=== PATIENT | female | born 1940 | race Caucasian/White ===

== ENCOUNTER 2021-03-09 09:51 | Outpatient (CLI) | payer MEDICARE, OTHER, SELFPAY ==
[2021-03-09 10:09] LABS: Basophils Percent Auto 0.7 % (0.2-1.2); Eosinophils Percent Auto 0.7 % (0-4.4); Hematocrit 34.8 % (37.0-47.0); Hemoglobin 11.5 g/dL (12.0-15.0); Immature Granulocyte Absolute 0.01 K/mm3 (0.00-0.031); Immature Granulocyte Percent A 0.2 % (0-0.5); Lymphocytes Absolute Auto 0.67 K/mm3 (0.9-3.2); Mean Corpuscular Hemoglobin 33.2 pg (26-34); Mean Corpuscular Volume 100.6 fl (80-100); Mean Platelet Volume 10.1 fl (7.4-10.4); Monocytes Absolute Auto 0.1 K/mm3 (0.1-0.6); Monocytes Percent Auto 2.7 % (2.6-8.5); Neutrophils Absolute Auto 3.6 K/mm3 (1.3-6.7); Neutrophils Percent Auto 80.7 % (45.5-73.1); Platelet Count Result 110 k/mm3 (150-375); Red Blood Count 3.46 M/mm3 (4.2-5.4); Red Cell Distribution Width 13.8 % (11.5-14.5); White Blood Count 4.5 K/mm3 (4.5-10.0)
== END 2021-03-09 09:52 | disposition home or self-care (01) ==
PROVIDERS: PCP Family Medicine; Visit Provider Family Medicine
DX: D69.6 Thrombocytopenia, unspecified (principal)
CPT/HCPCS: 36415; 85025

== ENCOUNTER 2022-03-24 14:46 | Outpatient (CLI) | payer MEDICARE, OTHER, SELFPAY ==
--- NOTE | ~2022-03-24 | CT_ITS ---
EXAMINATION: CT diagnostic chest wo con DATE: 03/24/2022 15:05 INDICATION: Pulmonary nodules TECHNIQUE: Computed tomography (CT) of the chest was performed without intravenous contrast. Automate d exposure control and iterative reconstruction technique were employed. Exam dose: 58.98 mGy-cm tot al exam DLP. COMPARISON: None FINDINGS: There is bilateral apical scarring. Approximately 5.3 x 10.6 x 10.2 mm irregular opacity is noted in the lateral aspect of the right uppe r lobe. PET/CT imaging is recommended for further evaluation, unless prior CT imaging dating back 2 or more y ears shows stability of this irregular opacity.. Mild emphysematous changes of the lungs. No pulmonary infiltrate or consolidation. Heart size is normal. Trace pericardial fluid. No hilar or mediastinal mass lesion or lymphadenopathy is evident. Mild thoracic aortic aneurysm given the descending thoracic aorta measuring up to 3.3 cm diameter.. Thoracic aortic and coronary artery calcifications. Probable small posterior right hepatic dome cyst.. 1.3 cm probable upper pole left renal cyst. Mild compression fracture deformity of T11 with depression of the superior vertebral endplate. IMPRESSION: 5.3 x 10.6 x 10.2 mm irregular right upper lobe opacity; PET/CT imaging is recommended u nless prior CT imaging dating back 2 or more years shows stability of this mass Mild emphysema Mild thoracic aortic aneurysm Probable hepatic dome cyst Probable upper pole left renal cyst Compression fracture deformity of T11 Reviewed, dictated and finalized at Location A. Reviewed, dictated and finalized at location A. IMPRESSION: 5.3 x 10.6 x 10.2 mm irregular right upper lobe opacity; PET/CT im aging is recommended unless prior CT imaging dating back 2 or more years shows stability of this mass Mild emphysema Mild thoracic aortic aneurysm Probable hepatic dome cyst Probable upper pole left renal cyst Compression fracture deformity of T11
== END 2022-03-24 14:47 | disposition home or self-care (01) ==
LOC: ANHIMG 14:48
PROVIDERS: PCP Family Medicine; Visit Provider Physician Assistant
DX: R91.8 Other nonspecific abnormal finding of lung field (principal); J43.9 Emphysema, unspecified; S22.080A Wedge compression fracture of T11-T12 vertebra, initial encounter for closed fracture; X58.XXXA Exposure to other specified factors, initial encounter
CPT/HCPCS: 71250

== ENCOUNTER 2022-04-01 11:43 | Outpatient (CLI) | payer MEDICARE, OTHER, SELFPAY ==
--- NOTE | ~2022-04-01 | PE_ITS ---
EXAMINATION: PET skull to mid thigh DATE: 04/01/2022 14:12 INDICATION: Pulmonary nodules TECHNIQUE: Blood glucose level was 93 mg/dl. 9.669 mCi of 18-fluorodeoxyglucose (18-FDG) was administ ered i.v. Low dose computed tomography (CT) images were acquired from the base of the brain to the pr oximal thighs for attenuation correction and anatomic localization. Positron emission tomography (PET ) images were acquired in the same distribution beginning 68 minutes after injection. The dose-length product (DLP) was chest CT, 03/24/2022 mGy-cm. COMPARISON: None FINDINGS: Head/neck: FDG uptake in the oral cavity and vocal cords without suspicious CT correlate is likely ph ysiologic. No abnormal FDG uptake is identified. Chest: There is a 1.1 x 0.8 cm nodule of the right upper lobe without associated FDG uptake. No abnor mal FDG uptake is identified. Mild emphysema is noted. The heart size is normal. There is calcified c oronary artery atherosclerosis. Scarring is noted in the lung apices. No pleural effusion or pneumoth orax. Abdomen/pelvis/proximal thighs: Physiologic FDG activity is present in the bowel and urinary tract. N o abnormal FDG uptake is identified. The liver, spleen, pancreas, gallbladder, and adrenal glands are normal. There is a 1.5 cm cyst of the left kidney. The right kidney is unremarkable. No pathological ly enlarged abdominal or pelvic lymph nodes are identified. There is no free intraperitoneal gas or e vidence of bowel obstruction. Musculoskeletal: No abnormal FDG uptake is identified. There is moderate cervical and mild lumbar spo ndylosis. IMPRESSION: 1. Right upper lobe nodule without associated FDG uptake, likely infectious or inflammatory. Follow-u p low-dose CT in three months is recommended. Reviewed, dictated and finalized at location F. IMPRESSION: 1. Right upper lobe nodule without associated FDG uptake, likely infectious or inflammatory. Follow-up low-dose CT in three months is recommended.
[2022-04-01 12:30] LABS: Glucose Point of Care 93 mg/dl (65-105)
== END 2022-04-01 11:44 | disposition home or self-care (01) ==
PROVIDERS: PCP Family Medicine; Visit Provider Physician Assistant
DX: R91.8 Other nonspecific abnormal finding of lung field (principal); D49.1 Neoplasm of unspecified behavior of respiratory system
CPT/HCPCS: 78815; A9552

== ENCOUNTER 2022-07-08 08:12 | Outpatient (CLI) | payer MEDICARE, OTHER, SELFPAY ==
--- NOTE | ~2022-07-08 | CT_ITS ---
EXAMINATION: CT diagnostic chest w con DATE: 07/08/2022 08:59 INDICATION: Follow-up right upper lobe nodule. TECHNIQUE: Computed tomography (CT) of the chest was performed with 75 cc Omnipaque 350 intravenous c ontrast. The dose-length product was 132.77 mGy-cm. Automated exposure control and iterative reconstr uction technique were employed. COMPARISON: CT dated 03/24/2022 FINDINGS: No significant pleural or pericardial effusion. There is atherosclerosis and ectasia of the thoracic aorta. Small hiatal hernia. There is cirrhosis of the liver. Small subcentimeter hypodensit y of the right hepatic lobe, most likely benign. Spleen appears enlarged, although incompletely visua lized. There are multiple collateral vessels in the upper abdomen. Small amount of ascites. Stable 1. 3 x 0.7 cm right upper lobe nodule dating back to 03/24/2022. No abnormal FDG uptake seen on prior pet s examination. There is apical pleural thickening/scarring. No pneumothorax. No pneumothorax. There i s a mild chronic compression deformity of the superior endplate at T11. No acute osseous abnormality. IMPRESSION: 1. Stable 1.3 x 0.7 cm right upper lobe nodule. Follow-up low dose CT chest in 6 months recommended. 2: Cirrhosis of the liver. Small amount of ascites. 3: Splenomegaly. Reviewed, dictated and finalized at location A.
[2022-07-08 08:49] LABS: Estimated Glomerular Filt Rate 53
== END 2022-07-08 08:13 | disposition home or self-care (01) ==
PROVIDERS: PCP Family Medicine; Visit Provider Physician Assistant
DX: R91.8 Other nonspecific abnormal finding of lung field (principal); K74.69 Other cirrhosis of liver; R16.1 Splenomegaly, not elsewhere classified
CPT/HCPCS: 71260; Q9967

== ENCOUNTER 2022-07-21 08:59 | Outpatient (CLI) | payer MEDICARE, OTHER, SELFPAY ==
--- NOTE | ~2022-07-21 | US_ITS ---
EXAMINATION: US abdomen complete DATE: 07/21/2022 09:55 INDICATION: Cirrhosis of the liver. TECHNIQUE: Multiple grayscale and Doppler ultrasound images of the abdomen were obtained. COMPARISON: Chest CT 07/08/2022 FINDINGS: The visualized portions of the head, body, and tail of the pancreas are normal. Abdominal a omari is normal in caliber. Inferior vena cava is normal. The liver demonstrates surface nodularity, c onsistent with cirrhosis. There is antegrade flow in main portal vein. There is nonocclusive thrombus in main portal vein. The gallbladder is normal in size. No gallstones or gallbladder wall thickening . There was no sonographic Mcarthur sign. The common duct is normal and measures 4 mm. The kidneys are normal in size. The spleen is normal in size. IMPRESSION: 1. Cirrhosis of the liver. 2. Nonocclusive thrombus in main portal vein. Reviewed, dictated and finalized at location B.
== END 2022-07-21 09:00 | disposition home or self-care (01) ==
PROVIDERS: PCP Family Medicine; Visit Provider Family Medicine
DX: K74.60 Unspecified cirrhosis of liver (principal); I81 Portal vein thrombosis
CPT/HCPCS: 76700

== ENCOUNTER 2022-08-24 01:26 | Day surgery (SDC) | payer MEDICARE, OTHER, SELFPAY ==
[2022-08-12 08:37] VITALS: BMI 22.7
[2022-08-24 09:16] VITALS: BP 140/81; PULSE 72; RESP 20; TEMP 36.9; O2SAT 99
[2022-08-24] MEDS: LACTATED RINGERS 1,000 ML 150 ML IV CONT (09:48)
--- NOTE | 2022-08-24 09:57 | WPDHPUPDATE1 ---
History and Physical Update Update Date/Time: 08/24/22 09:57 History and Physical has been reviewed, including an updated exam of the patient. There are NO changes in the patient's condition. Risks, benefits, and alternatives have been discussed and questions answered. Patient agrees to proceed with procedure.
--- NOTE | 2022-08-24 09:58 | WPDANESEPPF ---
Anes - Initial Pre Proc Eval Procedure: Operation Date: 08/24/22 10:45 Proposed Procedures p Esophagogastroduodenoscopy EGD - Lazarus Harrison MD Date/Time: 08/24/22 09:58 Surgeon: Lazarus Harrison MD Pre Op Diagnosis: cirrhosis Patient Data Age: 81 Gender: F Height: 1.68 m Weight: 66.3 kg Last Vital Signs Temp 98.4 F 08/24/22 09:16 Pulse 72 08/24/22 09:16 Resp 20 08/24/22 09:16 BP 140/81 08/24/22 09:16 Pulse Ox 99 08/24/22 09:16 O2 Del Method Room Air 08/24/22 09:16 Allergies Allergy/AdvReac Type Severity Reaction Status Date / Time butorphanol [From Stadol] Allergy Unknown Unknown Verified 08/24/22 09:14 Penicillins Allergy Unknown Rash Verified 08/24/22 09:14 Home Medications Medication Instructions Recorded Confirmed Type acetaminophen 325 mg capsule 650 mg PO Q6H PRN Pain 01/12/21 08/12/22 History azelastine 137 mcg (0.1 %) nasal 137 mcg (0.137 mL) intranasal Q12H 01/12/21 08/12/22 Rx spray aerosol #30 mL mupirocin 2 % topical ointment 1 applic topical BID #15 grams 01/12/21 08/12/22 Rx nystatin 100,000 unit/gram topical 1 applic topical BID #60 grams 01/12/21 08/12/22 Rx cream folic acid 1 mg tablet 1 mg PO DAILY #90 tabs 07/10/21 08/12/22 Rx fluoxetine 20 mg capsule 20 mg PO DAILY #90 caps 01/07/22 08/12/22 Rx multivitamin 1 tablet PO DAILY 03/17/22 08/12/22 History ergocalciferol (vitamin D2) 1,250 1,250 mcg PO WEEKLY #14 caps 04/07/22 08/12/22 Rx mcg (50,000 unit) capsule levothyroxine 75 mcg tablet 75 mcg PO DAILY #90 tabs 07/06/22 08/12/22 Rx methotrexate sodium 2.5 mg tablet 15 mg PO WEEKLY 3 months #78 tabs 07/20/22 08/12/22 Rx pyridoxine (vitamin B6) 100 mg 100 mg PO DAILY 07/20/22 08/12/22 History tablet oxybutynin chloride 5 mg tablet 5 mg PO DAILY #90 tabs 08/05/22 08/12/22 Rx Patient hx anesthesia problems: none Family hx anesthesia problems: none Results Review: All pre-operative results and documents have been reviewed as part of the pre-operative evaluation. [facility] Past Medical History Medical History Anemia Chronic renal insufficiency, stage III (moderate) Encounter for immunization Fatigue Hypothyroidism Kidney function abnormal Methotrexate, predatory animal exterminator, current use Multiple nodules of lung Paresthesia of foot, bilateral Portal vein thrombosis Rheumatoid arthritis Vitamin D deficiency Family History Family History Father Heart disease Hypertension Alcohol abuse Mother Brain cancer Depression Sibling Alcohol abuse Lung cancer Social History Social History Smoking packs per day: 1 Smoking cigarettes per day: 20.0 Years smoked: 30 Smoking pack-years: 30.00 Smoking status: Former smoker Second hand tobacco smoke exposure: No Alcohol intake: never Substance use: never Substance use type: does not use Living arrangements: alone Gender identity (if verbalized by the patient): Female Spiritual care concerns: No Anes - Eval Final PreProcedure Day of Procedure 08/24/22 09:58 Patient weight: normal Heart: regular rate and rhythm Lungs: clear to auscultation Airway: Mallampati scale class II Neurological: alert and oriented Last oral intake: >/= 8 hours ASA classification: III Emergent: no Anesthetic plan: proceed Anesthesia type and monitoring: general GIVS and standard monitoring Results Review: All pre-operative results and documents have been reviewed as part of the pre-operative evaluation. Informed Consent: The patient's anesthetic plan and its attendant risks and benefits were discussed with the patient/family/POA. Questions were solicited and answers provided to the satisfaction of the patient/family/POA.
[2022-08-24 10:17] VITALS: BP 94/50; PULSE 66; RESP 23; O2SAT 100
[2022-08-24 10:27] VITALS: BP 94/56; PULSE 66; RESP 18; O2SAT 100
[2022-08-24 10:37] VITALS: BP 111/67; PULSE 65; RESP 17; O2SAT 100
== END 2022-08-24 11:00 | disposition home or self-care (01) ==
PROVIDERS: PCP Family Medicine; Visit Provider Internal Medicine Gastroenterology
PROC: 0DJ08ZZ Inspection of Upper Intestinal Tract, Via Natural or Artificial Opening Endoscopic (ICD-10-PCS; CPT 43235; principal; 2022-08-24 10:45)
DX: K74.60 Unspecified cirrhosis of liver (principal); I85.10 Secondary esophageal varices without bleeding; N18.30 Chronic kidney disease, stage 3 unspecified; E55.9 Vitamin D deficiency, unspecified; E03.9 Hypothyroidism, unspecified; D64.9 Anemia, unspecified; Z87.891 Personal history of nicotine dependence
CPT/HCPCS: 43235; J2704; J7120

== ENCOUNTER 2022-08-25 14:32 | Outpatient (CLI) | payer MEDICARE, OTHER, SELFPAY ==
--- NOTE | ~2022-08-25 | MR_ITS ---
EXAMINATION: MR abdomen wo/w con DATE: 08/25/2022 15:55 INDICATION: Cirrhosis of the liver. Elevated AFP. TECHNIQUE: Magnetic resonance imaging (MRI) of the abdomen was performed without and with 13 mL Multi Luis Miguel intravenous contrast. COMPARISON: Ultrasound 07/21/2022 FINDINGS: The liver demonstrates a nodular surface contour, consistent with cirrhosis. There are 2 cysts in the liver with the larger measuring 9 mm. There is nonocclusive thrombus in main portal vein. The spleen is normal in size. Pancreas divisum is noted. The gallbladder and adrenal glands are normal. There a re cysts in the kidneys measuring up to 1.9 cm on the left. There are no dilated loops of bowel. Ther e is a small volume of ascites. IMPRESSION: 1. Cirrhosis of the liver. 2. Nonocclusive thrombus in main portal vein again seen. 3. Small volume of ascites. Reviewed, dictated and finalized at location A. ING REPAIRER
== END 2022-08-25 14:33 | disposition home or self-care (01) ==
PROVIDERS: PCP Family Medicine; Visit Provider Nurse Practitioner Family
DX: K74.60 Unspecified cirrhosis of liver (principal); R77.2 Abnormality of alphafetoprotein; I81 Portal vein thrombosis; R18.8 Other ascites
CPT/HCPCS: 74183; A9577

== ENCOUNTER 2023-02-17 11:09 | Outpatient (CLI) | payer MEDICARE, OTHER, SELFPAY ==
--- NOTE | ~2023-02-17 | XR_ITS ---
Left foot Technique: AP and lateral standing views were obtained. Clinical History: Rheumatoid arthritis Findings: Generalized osteopenia is present. No acute fracture or dislocation is seen. Osseous alignm ent is anatomic. Joint spaces are preserved without erosive or degenerative change. Soft tissues are unremarkable. Impression: Generalized osteopenia. No erosive change evident. Reviewed, dictated and finalized at location . Impression: Generalized osteopenia. No erosive change evident.
--- NOTE | ~2023-02-17 | XR_ITS ---
Bilateral Hands Technique: Bilateral PA, oblique, and lateral views, and ball-catcher's view were obtained. Clinical History: Rheumatoid arthritis Findings: No acute fracture or dislocation is seen. There is joint space narrowing diffusely involvin g the right-sided metacarpophalangeal joints. Possible erosive changes at the right third metacarpal head in particular. Probable minimal joint space narrowing at the left second and third metacarpophal angeal joints. Diffuse generalized osteopenia is present. Soft tissues are unremarkable. Impression: Probable bilateral metacarpophalangeal joint space narrowing, right hand worse than left, as detailed above, which could reflect rheumatoid arthritis. Possible erosive changes at the right third metacar pal head. Diffuse generalized osteopenia. Reviewed, dictated and finalized at location . Impression: Probable bilateral metacarpophalangeal joint space narrowing, right hand worse than left, as detailed above, which could reflect rheumatoid arthritis. Possibl e erosive changes at the right third metacarpal head. Diffuse generalized osteopenia.
--- NOTE | ~2023-02-17 | XR_ITS ---
Right foot Technique: AP and lateral standing views were obtained. Clinical History: Rheumatoid arthritis Findings: No acute fracture or dislocation is seen. There is hallux valgus with mild osteoarthritic c hange at the first MTP joint region. Diffuse generalized osteopenia present. Joint spaces are preserv ed without erosive or degenerative change. Soft tissues are unremarkable. Impression: Diffuse generalized osteopenia. Hallux valgus with mild osteoarthritic change at the first MTP joint region. Reviewed, dictated and finalized at location M. Impression: Diffuse generalized osteopenia. Hallux valgus with mild osteoarthritic change at the first MTP joint region.
== END 2023-02-17 11:10 | disposition home or self-care (01) ==
LOC: ANHIMG 11:12
PROVIDERS: PCP Family Medicine; Visit Provider Internal Medicine
DX: M06.9 Rheumatoid arthritis, unspecified (principal); M20.11 Hallux valgus (acquired), right foot; M85.871 Other specified disorders of bone density and structure, right ankle and foot; M85.872 Other specified disorders of bone density and structure, left ankle and foot; M85.841 Other specified disorders of bone density and structure, right hand; M85.842 Other specified disorders of bone density and structure, left hand
CPT/HCPCS: 73130; 73620

== ENCOUNTER 2023-08-08 08:31 | Outpatient (CLI) | payer MEDICARE, OTHER, SELFPAY ==
--- NOTE | ~2023-08-08 | MR_ITS ---
EXAMINATION: MR abdomen wo/w con INDICATION: Cirrhosis and portal vein thrombosis TECHNIQUE: Coronal SSFSE ARC, WATER:coronal LAVA-FLEX, Coronal 2D FIESTA FatSat, Axial SSFSE BH ARC, Axial 3D DualEcho BH, Axial SSFSE-IR, Axial DWI b=500, Axial 2D FIESTA FatSat, pre and dynamic postco ntrast Axial LAVA ARC, postcontrast Coronal In and Opposed phase LAVA FLEX COMPARISON: 08/25/2022 CONTRAST: Multihance, 11 cc FINDINGS: There is a moderate size right pleural effusion. A small left pleural effusion is noted. Cy sts of the liver measure 9 mm and 4 mm. The spleen, gallbladder, and adrenal glands are normal. Pancr eas divisum is noted. The liver surface is nodular. Respiratory motion artifact significantly limits postcontrast sequences. Previously described nonocclusive thrombus in the main portal vein is not thong ntified. There is a small volume of abdominal and pelvic ascites. No pathologically enlarged abdomina l lymph nodes are identified. There are no dilated loops of bowel. Cysts of the kidneys measure up to 2.1 cm on the left . IMPRESSION: 1. Cirrhosis. 2. No definite persistent portal venous thrombosis identified, sensitivity limited by respiratory mot ion. 3. Moderate size right pleural effusion. 4. Small volume of ascites. Reviewed, dictated and finalized at location B. P CAPTAIN IMPRESSION: 1. Cirrhosis. 2. No definite persistent portal venous thrombosis identified, sensitivity limi nash by respiratory motion. 3. Moderate size right pleural effusion. 4. Small volume of ascites.
== END 2023-08-08 08:32 | disposition home or self-care (01) ==
PROVIDERS: PCP Family Medicine; Visit Provider Nurse Practitioner Family
DX: I81 Portal vein thrombosis (principal); K74.60 Unspecified cirrhosis of liver; R18.8 Other ascites; J90 Pleural effusion, not elsewhere classified
CPT/HCPCS: 74183; A9577

== ENCOUNTER 2023-08-08 10:09 | Emergency (ER) | payer MEDICARE, OTHER, SELFPAY ==
[2023-08-08] VITALS (7 sets, daily range): BP systolic 146–155; BP diastolic 82–93; PULSE 60–62; RESP 16–18; TEMP 36.4; O2SAT 93–100
--- NOTE | 2023-08-08 12:26 | ED.GENADULT ---
HPI - General Adult General Chief complaint: Unspecified Stated complaint: mri saw something on pts lungs Time Seen by Provider: 08/08/23 12:00 Source: patient, family and other (notified by radiologist prior to patient's arrival ) Limitations: no limitations History of Present Illness HPI narrative: Patient is an 82 yo with Hx of COPD and cirrhosis as well as rheumatoid arthritis. Patient underwent abdominal MRI this morning to evaluate her liver. She was sent to the ED for concerning lung findings seen on images. She does have shortness of breath, often exacerbated by abdominal swelling. Not on inhaler or nebulizer or steroids for COPD. She does state that a spot had been previously seen on her lung that they were monitoring and she does not know if this is related. SHe has had a cough productive of scant phelgm. No fevers. 10 lb weight loss over 2 months by report. No prior paracentesis. She denies any pain. Denies night sweats. Medication list: acetaminophen, Vit D2, fluoxetine, folic acid, hydrocortisone 2.5, levothyroxine, multivitamin, muprirocin, oxybutynin, propranolol, Vit B6 Related Data Home Medications Medication Instructions Recorded Confirmed acetaminophen 325 mg capsule 650 mg PO Q6H PRN Pain 01/12/21 07/19/23 multivitamin 1 tablet PO DAILY 03/17/22 07/19/23 pyridoxine (vitamin B6) 100 mg 100 mg PO DAILY 07/20/22 07/19/23 tablet Allergies Allergy/AdvReac Type Severity Reaction Status Date / Time butorphanol [From Stadol] Allergy Unknown Unknown Verified 07/19/23 10:16 Penicillins Allergy Unknown Rash Verified 07/19/23 10:16 [facility] Past Medical History Medical History (Updated 08/10/23 @ 01:34 by Ronna Dowell MD) Anemia Back pain Chronic renal insufficiency, stage III (moderate) Cirrhosis COPD (chronic obstructive pulmonary disease) Encounter for immunization Esophageal varices determined by endoscopy Fatigue Hypothyroidism Kidney function abnormal Liver cyst Loose stools Methotrexate, long term acute care registered nurse, current use Multiple nodules of lung Paresthesia of foot, bilateral Portal vein thrombosis Rheumatoid arthritis Vitamin D deficiency Family History Family History Father Heart disease Hypertension Alcohol abuse Mother Brain cancer Depression Sibling Alcohol abuse Lung cancer Social History Social History (Updated 08/10/23 @ 01:31 by Ronna Dowell MD) Smoking packs per day: 1 Smoking cigarettes per day: 20.0 Years smoked: 30 Smoking pack-years: 30.00 Smoking status: Former smoker Second hand tobacco smoke exposure: No Alcohol intake: never Substance use: never Substance use type: does not use Lack of Transportation: No Lack of Food: Never True Current Housing: I Have Housing Concerned About Future Housing: No Difficulty Paying Gas/Electric Bills: No Difficulty Paying for Meds: No Currently Unemployed: No Education: Decline to Answer Difficulty w/ Childcare or Family Care: Decline to Answer Living arrangements: alone Additional living arrangements comments: Moved from [facility] in 2019 Gender identity (if verbalized by the patient): Female Spiritual care concerns: No Agree to blood products: Yes Exam Const: General: cooperative, comfortable, no acute distress, alert and awake; No healthy appearing, acute distress, anxious, combative or diaphoretic Orientation/consciousness: oriented to person, oriented to place and oriented to time HENMT: Head: normocephalic and atraumatic Ears: hearing grossly normal bilaterally Resp: Effort & Inspection: normal respiratory effort, able to speak in complete sentences, normal respiratory pattern, no audible wheezes, not labored, no nasal flaring, no paradoxical thoraco-abdom movements, pursed lip breathing, no respiratory distress, no retractions, no segmental paradox chest wall movement, no stridor, tachypneic, no tripod posit
== END 2023-08-08 14:42 | disposition home or self-care (01) ==
PROVIDERS: Emergency Provider Student in an Organized Health Care Education/Training Program; PCP Family Medicine
DX: J90 Pleural effusion, not elsewhere classified (principal); J44.9 Chronic obstructive pulmonary disease, unspecified; K74.60 Unspecified cirrhosis of liver; K76.6 Portal hypertension; N18.30 Chronic kidney disease, stage 3 unspecified; M06.9 Rheumatoid arthritis, unspecified; E03.9 Hypothyroidism, unspecified; E55.9 Vitamin D deficiency, unspecified; Z86.2 Personal history of diseases of the blood and blood-forming organs and certain disorders involving the immune mechanism; Z87.891 Personal history of nicotine dependence; R18.8 Other ascites
CPT/HCPCS: 74183; 99281; A9577

== ENCOUNTER 2023-08-16 08:26 | Outpatient (CLI) | payer MEDICARE, OTHER, SELFPAY ==
--- NOTE | ~2023-08-16 | CT_ITS ---
Clinical Indication: Pulmonary nodule CT Scan of the Chest with Contrast: Technique: Contiguous sections were acquired throughout the chest after intravenous administration of 75 cc of Omnipaque 350. Dose reduction technique was used on this scan by utilizing automated exposu re control and iterative reconstruction technique. The dose-length product (DLP) was 132.86 mGy-cm. COMPARISON: 07/08/2022 Findings: There is no evidence of any significant mediastinal, hilar or axillary lymphadenopathy. There is no f illing defect in the pulmonary arterial tree to suggest pulmonary embolus. There is no evidence of ao rtic dissection or aneurysm. No pericardial effusion. Moderate right pleural effusion is present. No left pleural effusion. Stable 1.2 cm spiculated nodule in the right upper lobe (axial image 53). Mild biapical scarring pres ent. Images through the upper abdomen reveal no abnormalities. Impression: Stable 1.2 cm spiculated right upper lobe pulmonary nodule. Continued follow-up to document 2 years s tability advised. Moderate right pleural effusion. Reviewed, dictated and finalized at location . FACER Impression: Stable 1.2 cm spiculated right upper lobe pulmonary nodule. Continued follow-up to document 2 years stability advised. Moderate right pleural effusion.
[2023-08-16 08:50] LABS: Estimated Glomerular Filt Rate 53
== END 2023-08-16 08:27 | disposition home or self-care (01) ==
LOC: ANHIMG 08:30
PROVIDERS: PCP Family Medicine; Visit Provider Physician Assistant
DX: R91.1 Solitary pulmonary nodule (principal); J90 Pleural effusion, not elsewhere classified
CPT/HCPCS: 71260; Q9967

== ENCOUNTER 2023-09-13 14:24 | Outpatient (CLI) | payer MEDICARE, OTHER, SELFPAY ==
--- NOTE | ~2023-09-13 | XR_ITS ---
EXAMINATION: XR chest 2V Exam Date/Time: 09/13/2023 14:50 [employer]OURCES DISTRICT MANAGER HISTORY: J90 - Pleural effusion, not elsewhere classified Comparison: CT chest 08/16/2023. RESULT: Lines, tubes, and devices: None. Lungs and pleura: Enlarging 1.5 cm right apical pleural-based opacity. Stable peripheral right middl e lobe nodule. Moderate right costophrenic angle blunting, slightly increased Cardiomediastinal silhouette: Stable. Other: No acute osseous or upper abdominal finding. IMPRESSION: Enlarging 1.5 cm pleural-based right apical nodule. Stable peripheral right upper lobe nodule. Worsen ing right pleural effusion. Recommend CT of the chest with contrast for further evaluation. Reviewed, dictated and finalized at location K. N RESOURCES DISTRICT MANAGER IMPRESSION: Enlarging 1.5 cm pleural-based right apical nodule. Stable peripheral right upp er lobe nodule. Worsening right pleural effusion. Recommend CT of the chest wit h contrast for further evaluation.
== END 2023-09-13 14:25 | disposition home or self-care (01) ==
LOC: ANHIMG 14:35
PROVIDERS: PCP Family Medicine; Visit Provider Internal Medicine Pulmonary Disease
DX: J90 Pleural effusion, not elsewhere classified (principal); R91.1 Solitary pulmonary nodule
CPT/HCPCS: 71046

== ENCOUNTER 2023-10-11 10:55 | Outpatient (CLI) | payer MEDICARE, OTHER, SELFPAY ==
--- NOTE | 2023-10-07 11:40 | PC.NURSE ---
Pre Radiology instructions Report to the outpatient [facility] on date 10/11/2023 at time _11am_ for procedure Time: __1pm__ YOU MAY BE MONITORED AT HOSPITAL FOR UP TO 4 HOURS AFTER YOUR PROCEDURE. A visitor will be allowed to accompany the patient into the hospital. You and your visitor will be asked to self-screen and do not enter if you have any COVID symptoms. A mask is OPTIONAL within the hospital. Patients are to have no food or drink 6 hours prior to procedure time stop 7am Driving will be restricted after the procedure, you must have a person to drive you home. Labs will be drawn in preop area and once reviewed, you will be taken to radiology area for procedure. When the procedure is completed, you will be taken to outpatient where you will be monitored for several hours. You may have one visitor in this area. Other than holding anti-coagulants, patient may take other medication(s) as scheduled. Prior to your appointment date patients are instructed to hold anti-coagulants after discussing with ordering provider to stop. If unable to discontinue anti-coagulants please notify radiologist. ? No aspirin or warfarin (Coumadin) for 7 days prior to the procedure. ? No clopidogrel (Plavix), ticagrelor (Brilinta), prasugrel (Effient) or dabigatran (Pradaxa) for 5 days prior to the procedure. ? No rivaroxaban (Xarelto), apixaban (Eliquis), dipyridamole (Aggrenox or Persantine) or cilostazol (Pletal) for 2 days prior to the procedure. Medications to discontinue per physician: NA___ Date to take last dose: Please leave all valuables, including medications, at home the day of procedure. The hospital will not accept responsibility for valuables. Wear comfortable, loose fitting clothing.? Follow any additional instructions given to you from ordering provider. Telephone instructions given to patient and asked if any additional questions and then verbalized understanding. Patient advised to call scheduling provider office or registration scheduling [phone] if any additional questions.
[2023-10-07 11:49] VITALS: BMI 20.9
[2023-10-11] VITALS (9 sets, daily range): BP systolic 119–144; BP diastolic 70–89; PULSE 64–67; RESP 16–18; TEMP 36.7; O2SAT 97–100
--- NOTE | ~2023-10-11 | XR_ITS ---
EXAMINATION: [id number] DATE: 10/11/2023 13:22 INDICATION: Right pleural effusion status post thoracentesis. TECHNIQUE: A single frontal view of the chest was obtained. COMPARISON: Chest 2 views 09/13/2023, chest CT 08/16/2023, 03/24/2022 FINDINGS: There is a moderate-sized right pleural effusion. There is mild scarring at the lung apices . There is a nodule in right lung upper lobe. No pneumothorax. The heart size is normal. IMPRESSION: 1. Moderate-sized right pleural effusion status post thoracentesis. 2. Stable right lung nodule, likely benign. Reviewed, dictated and finalized at location A. S [employer]
--- NOTE | ~2023-10-11 | US_ITS ---
EXAMINATION: US thoracentesis DATE: 10/11/2023 13:33 INDICATION: pleural effusion TECHNIQUE: The procedure and its risks, benefits, and alternatives were discussed with the patient. P otential risks discussed included bleeding, infection, and pneumothorax. The patient understood the r isks and agreed to proceed. The skin was prepped and draped in sterile fashion. 1% lidocaine was used for local anesthesia. Under ultrasound guidance, a 5 Fr catheter with trochar was advanced into the right pleural effusion. Fluid was aspirated. The catheter was removed, and a dressing was applied. Th ere were no immediate complications. FINDINGS: Ultrasound images demonstrate a right pleural effusion and the catheter within the fluid. IMPRESSION: 1. Successful ultrasound-guided thoracentesis yielding 1000 mL of cloudy yellow fluid. Reviewed, dictated and finalized at location A. BOAT OR BARGE MATE IMPRESSION: 1. Successful ultrasound-guided thoracentesis yielding 1000 mL of cloudy yello w fluid.
[2023-10-11 11:46] LABS: Immature Platelet Fraction Pct 3.8 % (0.9-11.2); Mean Platelet Volume 10.7 fl (7.4-10.4); Platelet Count Result 112 k/mm3 (150-375)
[2023-10-11 11:55] LABS: INR 1.2; Prothrombin Time 15.3 Seconds (11.1-14.7)
[2023-10-11 14:11] LABS: pH Pleural Fluid > 7.500 (7.210-7.500)
[2023-10-11 15:02] LABS: Appearance Pleural Fluid Clear (Clear); Pleural fluid source Pleural fluid
[2023-10-11 15:03] LABS: Color Pleural Fluid Yellow (Colorless); RBC Pleural Fluid < 2000 /uL (0-0)
[2023-10-11 15:06] LABS: Lymphocytes Pleural Fluid 88 %; Macrophages Pleural Fluid 5 %; Monocytes Pleural Fluid 5 %; Neutrophils Pleural Fluid 2 % (0-25); Nucleated Cell Pleural Fluid 437 /uL (0-1000)
[2023-10-14 07:50] LABS: Glucose Pleural Fluid 104 mg/dL; LDH Pleural Fluid 82 U/L; Total Protein Pleural Fluid <3.0 g/dL
[2023-10-14 19:31] LABS: Amylase, Pleural Fluid 30 U/L
== END 2023-10-11 15:34 | disposition home or self-care (01) ==
PROVIDERS: PCP Family Medicine; Referring Provider Internal Medicine Pulmonary Disease; Visit Provider Radiology Diagnostic Radiology
DX: J90 Pleural effusion, not elsewhere classified (principal)
CPT/HCPCS: 32555; 36415; 82150; 82945; 83615; 83986; 84157; 85049; 85055; 85610; 87015; 87070; 87075; 87116; 87205; 87206; 88108; 88305; 88342; 89051

== ENCOUNTER 2023-10-12 11:17 | Outpatient (CLI) | payer MEDICARE, OTHER, SELFPAY ==
[2023-10-12 11:56] LABS: Lactate Dehydrogenase 127 U/L (120-246)
== END 2023-10-12 11:18 | disposition home or self-care (01) ==
LOC: ANHLAB 11:19
PROVIDERS: PCP Family Medicine; Visit Provider Internal Medicine Pulmonary Disease
DX: J90 Pleural effusion, not elsewhere classified (principal)
CPT/HCPCS: 36415; 83615; 84155

== ENCOUNTER 2023-11-11 12:46 | Outpatient (CLI) | payer MEDICARE, OTHER, SELFPAY ==
--- NOTE | ~2023-11-11 | XR_ITS ---
Clinical Indication: Pleural effusion PA and lateral views of the chest: Comparison: 10/11/2023 Findings: Moderate right pleural effusion is increased from prior exam. Left lung remains clear. Ques tionable 9 mm right upper lobe pulmonary nodule. Cardiomediastinal silhouette is within normal limit s. Bones and soft tissues are unremarkable. Impression: Moderate right pleural effusion is increased from prior exam. Probable 9 mm right upper lobe pulmonary nodule. This presumably correlates with right upper lobe pul monary nodule seen on prior CT scan dated 08/16/2023. Reviewed, dictated and finalized at location M. REPAIRER Impression: Moderate right pleural effusion is increased from prior exam. Probable 9 mm right upper lobe pulmonary nodule. This presumably correlates wit h right upper lobe pulmonary nodule seen on prior CT scan dated 08/16/2023.
== END 2023-11-11 12:47 | disposition home or self-care (01) ==
LOC: ANHIMG 12:50
PROVIDERS: PCP Family Medicine; Visit Provider Internal Medicine Pulmonary Disease
DX: J90 Pleural effusion, not elsewhere classified (principal)
CPT/HCPCS: 71046

== ENCOUNTER 2023-12-07 11:17 | Outpatient (CLI) | payer MEDICARE, OTHER, SELFPAY ==
--- NOTE | ~2023-12-07 | XR_ITS ---
EXAMINATION: XR chest 2V DATE: 12/07/2023 11:38 INDICATION: Right pleural effusion and lung nodule TECHNIQUE: Frontal and lateral views of the chest are obtained COMPARISON: 11/11/2023 FINDINGS: There is a moderate size right pleural effusion without significant change since the compar jassi examination. There is a stable nodule of the right midlung zone. There are worsening airspace op acities of the right lung base. There is moderate thoracic spondylosis. IMPRESSION: 1. Moderate size right pleural effusion, stable. 2. Worsening airspace opacities of the right lung base, likely passive atelectasis. 3. Stable right lung nodule. Reviewed, dictated and finalized at location B. T OF WAY APPRAISER IMPRESSION: 1. Moderate size right pleural effusion, stable. 2. Worsening airspace opacities of the right lung base, likely passive atelecta sis. 3. Stable right lung nodule.
== END 2023-12-07 11:18 | disposition home or self-care (01) ==
PROVIDERS: PCP Family Medicine; Visit Provider Internal Medicine Pulmonary Disease
DX: R91.8 Other nonspecific abnormal finding of lung field (principal); R91.1 Solitary pulmonary nodule; J90 Pleural effusion, not elsewhere classified
CPT/HCPCS: 71046

== ENCOUNTER 2024-01-02 02:24 | Outpatient (CLI) | payer MEDICARE, OTHER, SELFPAY ==
[2023-12-22 15:22] VITALS: BMI 20.2
--- NOTE | 2023-12-22 15:22 | PC.NURSE ---
Pre Radiology instructions Report to the outpatient [facility] on date __01/02/24___ at time __1100____ for procedure Time: __1 PM__ YOU MAY BE MONITORED AT HOSPITAL FOR UP TO 4 HOURS AFTER YOUR PROCEDURE. A visitor will be allowed to accompany the patient into the hospital. You and your visitor will be asked to self-screen and do not enter if you have any COVID symptoms. A mask is OPTIONAL within the hospital. Patients are to have no food or drink 6 hours prior to procedure time Driving will be restricted after the procedure, you must have a person to drive you home. Labs will be drawn in preop area and once reviewed, you will be taken to radiology area for procedure. When the procedure is completed, you will be taken to outpatient where you will be monitored for several hours. You may have one visitor in this area. Other than holding anti-coagulants, patient may take other medication(s) as scheduled. Prior to your appointment date patients are instructed to hold anti-coagulants after discussing with ordering provider to stop. If unable to discontinue anti-coagulants please notify radiologist. ? No aspirin or warfarin (Coumadin) for 7 days prior to the procedure. ? No clopidogrel (Plavix), ticagrelor (Brilinta), prasugrel (Effient) or dabigatran (Pradaxa) for 5 days prior to the procedure. ? No rivaroxaban (Xarelto), apixaban (Eliquis), dipyridamole (Aggrenox or Persantine) or cilostazol (Pletal) for 2 days prior to the procedure. Medications to discontinue per physician: ___N/A Date to take last dose: Please leave all valuables, including medications, at home the day of procedure. The hospital will not accept responsibility for valuables. Wear comfortable, loose fitting clothing.? Follow any additional instructions given to you from ordering provider. Telephone instructions given to ___PT and asked if any additional questions and then verbalized understanding. Patient advised to call scheduling provider office or registration scheduling [phone] if any additional questions.
[2024-01-02] VITALS (8 sets, daily range): BP systolic 136–155; BP diastolic 88–96; PULSE 61–72; RESP 18; TEMP 36.3; O2SAT 93–100; BMI 20.6
--- NOTE | ~2024-01-02 | US_ITS ---
CORRECTED REPORT Images and report moved from [id number] to [id number] 01/09/24[facility] EXAMINATION: US thoracentesis DATE: 01/02/2024 15:10 INDICATION: pleural effusion TECHNIQUE: The procedure and its risks, benefits, and alternatives were discussed with the patient. Potential risks discussed included bleeding, infection, and pneumothorax. The patient understood the risks and agreed to proceed. The skin was prepped and draped in sterile fashion. 1% lidocaine was used for local anesthesia. Under ultrasound guidance, a 5 Fr catheter with trochar was advanced into the right pleural effusion. Fluid was aspirated. The catheter was removed, and a dressing was applied. There were no immediate complications. FINDINGS: Ultrasound images demonstrate a right pleural effusion and the catheter within the fluid. IMPRESSION: 1. Successful ultrasound-guided thoracentesis yielding 1000 mL of yellow fluid. Reviewed, dictated and finalized at location A. NIKA CONWAY
--- NOTE | ~2024-01-02 | XR_ITS ---
CORRECTED REPORT Images and Report moved from [id number] to [id number] EXAMINATION: [id number]_CR DATE: 01/02/2024 14:05 INDICATION: Right pleural effusion status post thoracentesis. TECHNIQUE: A single frontal view of the chest was obtained. COMPARISON: Chest 2 views 12/07/23 FINDINGS: There is a moderate-sized right pleural effusion. There are airspace opacities at right lung base. There is mild scarring at the lung apices. There is a chronic nodule in right lung upper lobe, likely benign. No pneumothorax. The heart size is normal. IMPRESSION: 1. Moderate-sized right pleural effusion. 2. Airspace opacities at right lung base, consistent with atelectasis versus pneumonia. Reviewed, dictated and finalized at location A. MAN
[2024-01-02 11:50] LABS: Mean Platelet Volume 9.9 fl (7.4-10.4); Platelet Count Result 79 k/mm3 (150-375)
[2024-01-02 12:00] LABS: INR 1.1; Prothrombin Time 14.8 Seconds (11.1-14.7)
[2024-01-02 14:53] LABS: pH Pleural Fluid > 7.500 (7.210-7.500)
[2024-01-02 16:46] LABS: Pleural fluid source Pleural fluid
[2024-01-02 16:47] LABS: Appearance Pleural Fluid Cloudy (Clear); Color Pleural Fluid Yellow (Colorless); Lymphocytes Pleural Fluid 77 %; Macrophages Pleural Fluid 4 %; Mesothelial Cells Pleural Flui 4 %; Neutrophils Pleural Fluid 15 % (0-25)
[2024-01-07 12:56] LABS: Glucose Pleural Fluid 101 mg/dL; LDH Pleural Fluid 37 U/L; Total Protein Pleural Fluid <3.0 g/dL
[2024-01-07 18:11] LABS: Amylase, Pleural Fluid 32 U/L
== END 2024-01-02 16:25 | disposition home or self-care (01) ==
PROVIDERS: PCP Family Medicine; Referring Provider Internal Medicine Pulmonary Disease; Visit Provider Radiology Diagnostic Radiology
DX: J90 Pleural effusion, not elsewhere classified (principal)
CPT/HCPCS: 32555; 36415; 82150; 82945; 83615; 83986; 84157; 85049; 85610; 87070; 87075; 87102; 87205; 87206; 88108; 88305; 89051

== ENCOUNTER → 2024-01-02 12:42 | Outpatient (REF) | payer MEDICARE, OTHER, SELFPAY | LOC: ANHLAB 12:42 | PROVIDERS: PCP Family Medicine; Visit Provider Internal Medicine Pulmonary Disease | DX: J90 Pleural effusion, not elsewhere classified (principal) | CPT/HCPCS: 88108; 88305 ==

== ENCOUNTER 2024-01-09 07:26 | Outpatient (CLI) | payer MEDICARE, OTHER, SELFPAY ==
--- NOTE | ~2024-01-09 | US_ITS ---
Limited Abdominal Sonogram: Real-time sonographic imaging of the right upper quadrant was performed. Clinical History: Cirrhosis Findings: The liver demonstrate nodular contour, with no evidence of mass lesion or bile duct dilata tion. Main portal vein demonstrates normal direction of flow. The gallbladder is minimally distended, but appears normal with no evidence of gallstone or wall thickening. The common bile duct measures 5 mm. The visualized pancreas, aorta, and IVC are unremarkable. Impression: Nodular hepatic contour is compatible with underlying cirrhosis. Reviewed, dictated and finalized at location M. Impression: Nodular hepatic contour is compatible with underlying cirrhosis.
== END 2024-01-09 07:27 | disposition home or self-care (01) ==
LOC: ANHIMG 07:30
PROVIDERS: PCP Family Medicine; Visit Provider Nurse Practitioner Family
DX: K74.60 Unspecified cirrhosis of liver (principal); J90 Pleural effusion, not elsewhere classified
CPT/HCPCS: 76705

== ENCOUNTER 2024-01-23 06:08 | Inpatient (IN) | payer MEDICARE, OTHER, SELFPAY ==
[2024-01-23] VITALS (41 sets, daily range): BP systolic 100–216; BP diastolic 60–136; PULSE 66–88; RESP 15–28; TEMP 36–36.7; O2SAT 78–100; BMI 24.5
--- NOTE | 2024-01-23 | ECHO_ITS ---
Patient Info Name: Piedad Quiñones Age: 83 years : 1940 Gender: Female Ht: 64 in Wt: 137 lbs BSA: 1.68 m2 HR: 72 bpm BP: 162 / 84 mmHg Heart Rhythm: Sinus Rhythm Technical Quality: Good Exam Date: 01/23/2024 4:02 PM Exam Location: Echo Lab Patient Status: Inpatient Admit Date: 01/23/2024 Staff Ordering Physician: Zahraa Short MD Bag Patcher: [place] Herrera RDCS Attending Provider: Shabbir Morales MD Exam Type: CA echo doppler color flow Study Info Indications - heart failure symptoms Complete two-dimensional, color flow and Doppler transthoracic echocardiogram is performed. Summary 1. Complete two-dimensional, color flow and Doppler transthoracic echocardiogram is performed. 2. Left ventricular chamber dimension is normal. 3. Left ventricular systolic function is normal, estimated at 65-70%. 4. The left ventricular diastolic function is grade I diastolic dysfunction. 5. E/e' 11 is mildly elevated. 6. Left atrial chamber dimension is mildly enlarged. 7. Right atrial chamber dimension is moderately enlarged. 8. There is mild aortic valve sclerosis. 9. The mitral valve has moderately calcified annulus. 10. There is mild mitral valve regurgitation. 11. There is mild tricuspid valve regurgitation. 12. No pulmonary hypertension, estimated pulmonary arterial systolic pressure is 33 mmHg. Left Ventricle E/e' 11 is mildly elevated. Left ventricular chamber dimension is normal. Left ventricular systolic function is normal, estimated at 65-70%. The left ventricular diastolic function is grade I diastolic dysfunction. Right Ventricle Right ventricular systolic function is normal and with normal TAPSE 2.3 cm. Right ventricular chamber dimension is normal. Left Atria Left atrial chamber dimension is mildly enlarged. Right Atria Right atrial chamber dimension is moderately enlarged. Aortic Valve The aortic valve is trileaflet. There is mild aortic valve sclerosis. There is no aortic valve stenosis. There is no aortic valve regurgitation. Pulmonic Valve There is no pulmonic regurgitation. Mitral Valve The mitral valve has moderately calcified annulus. There is no mitral valve stenosis. There is mild mitral valve regurgitation. Tricuspid Valve There is mild tricuspid valve regurgitation. No pulmonary hypertension, estimated pulmonary arterial systolic pressure is 33 mmHg. Pericardium/Pleural There is no pericardial effusion. Inferior Vena Cava Normal inferior vena cava with >50% collapse upon inspiration consistent with normal right atrial pressure, 5 mmHg. Aorta The aortic root size at the sinus of Valsalva is normal. Left Ventricular Outflow Tract Name Value Normal LVOT 2D LVOT Diameter 2.0 cm LVOT Doppler LVOT Peak Gradient 6 mmHg LVOT Mean Gradient 2 mmHg LVOT VTI 20 cm LVOT VTI/AV VTI Ratio 0.8 LVOT Stroke Volume 61 ml LVOT CO 4.2 l/min LVOT CI 2.5 l/min/m2 Pulmonic Valve
--- NOTE | ~2024-01-23 | XR_ITS ---
EXAMINATION: [id number] DATE: 01/23/2024 15:25 INDICATION: Large right pleural effusion postthoracentesis TECHNIQUE: frontal and lateral views of the chest were obtained. COMPARISON: Chest radiograph dated 12/07/2023 FINDINGS: Interval decrease in size of a now moderate-sized right pleural effusion with associated compressive atelectasis along the mid to lower right lung. There is pulmonary vascular congestion and patchy airs pace opacities scattered throughout the left lung which could represent atelectasis, pulmonary edema, pneumonia or some combination thereof. No pneumothorax or left-sided pleural effusion. Heart size is normal. IMPRESSION: 1. Decreased now moderate-sized right pleural effusion with associated compressive atelectasis in the right mid and lower lung. 2. Opacities throughout the left lung which could represent atelectasis, pulmonary edema, pneumonia o r some combination thereof. Reviewed, dictated and finalized at location A. IMPRESSION: 1. Decreased now moderate-sized right pleural effusion with associated compress maninder atelectasis in the right mid and lower lung. 2. Opacities throughout the left lung which could represent atelectasis, pulmon ihsan edema, pneumonia or some combination thereof.
--- NOTE | ~2024-01-23 | US_ITS ---
EXAMINATION: US thoracentesis DATE: 01/23/2024 15:44 INDICATION: Right pleural effusion TECHNIQUE: The procedure and its risks and benefits were discussed with the patient. Potential risks discussed included bleeding, infection, and pneumothorax. The patient understood the risks and agreed to proceed. The skin was prepped and draped in sterile fashion. 1% lidocaine was used for local anes thesia. Under ultrasound guidance, a 5 Fr catheter with trochar was advanced into the large right ple ural effusion. Fluid was aspirated. The catheter was removed, and a dressing was applied. There were no immediate complications. FINDINGS: Ultrasound images demonstrate a large right pleural effusion and the catheter within the fluid. IMPRESSION: 1. Successful ultrasound-guided thoracentesis yielding 1100 mL of yellowish fluid. Reviewed, dictated and finalized at location A. IMPRESSION: 1. Successful ultrasound-guided thoracentesis yielding 1100 mL of yellowish fl uid.
--- NOTE | ~2024-01-23 | XR_ITS ---
EXAMINATION: XR chest 1V portable DATE: 01/23/2024 07:57 INDICATION: Dyspnea. TECHNIQUE: A single frontal view of the chest was obtained. COMPARISON: Chest single view 01/02/2024, chest CT 08/16/2023 FINDINGS: There is a large right pleural effusion. There is a diffuse interstitial pattern in the tashia gs. There are airspace opacities at right lung base and in all left lung zones. No pneumothorax. The heart size is normal. IMPRESSION: 1. Diffuse lung disease, consistent with pulmonary edema without or with superimposed pneumonia. 2. Worsened large right pleural effusion. Reviewed, dictated and finalized at location E. IMPRESSION: 1. Diffuse lung disease, consistent with pulmonary edema without or with superi mposed pneumonia. 2. Worsened large right pleural effusion.
--- NOTE | ~2024-01-23 | US_ITS ---
US abdomen limited 01/23/2024 15:38 Indication: Evaluate for ascites. Procedure: High-resolution Limited ultrasound of the abdomen Comparison: Ultrasound dated 01/09/2024 Findings: There is a small amount of perihepatic ascites. No significant ascites present in the left upper, lower or right lower quadrants. Impression: 1: Small volume of ascites in the right upper abdomen. Reviewed, dictated and finalized at location B. Impression: 1: Small volume of ascites in the right upper abdomen.
--- NOTE | ~2024-01-23 | XR_ITS ---
EXAMINATION: XR chest 1V portable DATE: 01/24/2024 05:49 INDICATION: Pleural effusion. TECHNIQUE: A single frontal view of the chest was obtained. COMPARISON: Chest single view 01/23/2024 FINDINGS: There are airspace and interstitial opacities in all lung zones bilaterally. There is a lar ge right pleural effusion. No pneumothorax. The heart size is normal. IMPRESSION: 1. Diffuse lung disease, consistent with pulmonary edema versus pneumonia. 2. Large right pleural effusion with mild worsening. Reviewed, dictated and finalized at location E.
--- NOTE | 2024-01-23 06:13 | ECG_ITS ---
SEE SCANNED COPY FOR CONFIRMED REPORT MTDD
--- NOTE | 2024-01-23 06:16 | ED.GENADULT ---
HPI - General Adult General Chief complaint: Shortness of Breath/Dyspnea <Ron Puga MD - Last Filed: 01/23/24 06:39> Stated complaint: sob <Ron Puga MD - Last Filed: 01/23/24 06:39> Time Seen by Provider: 01/23/24 06:09 <Ron Puga MD - Last Filed: 01/23/24 06:39> History of Present Illness HPI narrative: Patient 83-year-old female presents emergency department with chief complaint of shortness of breath. Patient has prior history of cirrhosis also history of pleural effusions the patient presents today with increasing shortness of breath patient states that she has noticed over the last several days she has been getting more short of breath but tonight was the worst the patient did have audible wheezing when EMS arrived she was given 10 mg of Decadron. Patient reports that she feels extremely tachypneic and reports that she cannot get a good deep breath. <Rno Puga MD - Last Filed: 01/23/24 06:39> Related Data Home medications: Home Medications Medication Instructions Recorded Confirmed acetaminophen 325 mg capsule 650 mg PO Q6H PRN Pain 01/12/21 01/23/24 multivitamin 1 tablet PO DAILY 03/17/22 01/23/24 pyridoxine (vitamin B6) 100 mg 100 mg PO DAILY 07/20/22 01/23/24 tablet azelastine 137 mcg (0.1 %) nasal 137 mcg intranasal PRN 10/07/23 01/23/24 spray aerosol nystatin 100,000 unit/gram topical 1 applic topical BID PRN 10/07/23 01/23/24 cream redness/irritation cholestyramine (with sugar) 4 gram 4 g PO 1400 01/23/24 01/23/24 powder for susp in a packet levothyroxine 75 mcg tablet 75 mcg PO 0600 01/23/24 01/23/24 propranolol 10 mg tablet 10 mg PO Q12H 01/23/24 01/23/24 <Ron Puga MD - Last Filed: 01/23/24 06:39> Allergies/adverse reactions: Allergies Allergy/AdvReac Type Severity Reaction Status Date / Time butorphanol [From Stadol] Allergy Unknown Unknown Verified 01/12/24 10:54 Penicillins Allergy Unknown Rash Verified 01/12/24 10:54 <Ron Puga MD - Last Filed: 01/23/24 06:39> Review of Systems Review of Systems: A 10 system review of systems was completed on the patient and is negative except for what is stated in the HPI. Nursing and ancillary documentation was reviewed. <Ron Puga MD - Last Filed: 01/23/24 06:39> [facility] Past Medical History Medical History: Medical History Anemia Back pain Chronic diarrhea Chronic renal insufficiency, stage III (moderate) Cirrhosis COPD (chronic obstructive pulmonary disease) Encounter for immunization Esophageal varices determined by endoscopy Fatigue Hypothyroidism Kidney function abnormal Liver cyst Loose stools Methotrexate, fdc, current use Multiple nodules of lung Paresthesia of foot, bilateral Portal vein thrombosis Rheumatoid arthritis Vitamin D deficiency <Ron Puga MD - Last Filed: 01/23/24 06:39> Family History Family History: Family History Father Heart disease Hypertension Alcohol abuse Mother Brain cancer Depression Sibling Alcohol abuse Lung cancer <Ron Puga MD - Last Filed: 01/23/24 06:39> Social History Social History: Social History Smoking packs per day: 1 Smoking cigarettes per day: 20.0 Years smoked: 30 Smoking pack-years: 30.00 Smoking status: Former smoker Second hand tobacco smoke exposure: No Alcohol intake: never Substance use: never Substance use type: does not use Do You Feel Safe in your Home?: Yes Lack of Transportation: No Lack of Food: Never True Current Housing: I Have Housing Concerned About Future Housing: No Difficulty Paying Gas/Electric Bills: No Difficulty Paying for Meds: No Currently
[2024-01-23] MEDS: IPRATROPIUM 0.5 MG/ALBUTEROL SULFATE 2.5 MG AMPUL.NEB 3 ML INHALATION (06:25)
[2024-01-23 06:42] LABS: Alveolar/Arterial O2 Gradient 413.4 mmHg; Base Excess ABG -4.4 mEq/l (+/-2.0); Fractional Inspired Oxygen 100 %; HCO3 ABG 20.5 mEq/l (22.0-26.0); Modified Allen's Test Pass; Oxygen Content ABG 16.2 %vol (16.0-22.0); Oxygen Saturation ABG 99.6 % (95.0-100.0); Oxyhemoglobin 98.1 % THb (90.0-100.0); PO2 ABG 262.6 mmHg (80.0-100.0); PO2 FiO2 Ratio Arterial Blood 2.63 %; Site Drawn RIGHT RADIAL; Total Hemoglobin 11.3 g/dL (12.0-18.0); pH ABG 7.361 (7.350-7.450)
[2024-01-23 06:43] LABS: Device BIPAP; Expiratory Pressure 8 cmH2O; Inspiratory Pressure 12 cmH2O
[2024-01-23 06:51] LABS: Basophils Absolute Auto 0.1 K/mm3 (0.0-0.1); Basophils Percent Auto 0.2 % (0.2-1.2); Eosinophils Absolute Auto 0.1 K/mm3 (0-0.3); Eosinophils Percent Auto 0.2 % (0-4.4); Hemoglobin 10.3 g/dL (12.0-15.0); Immature Granulocyte Percent A 1.1 % (0-0.5); Lymphocytes Absolute Auto 0.69 K/mm3 (0.9-3.2); Lymphocytes Percent Auto 2.6 % (18.3-44.2); Mean Corpuscular HGB Conc 34.3 g/dl (32-36); Mean Corpuscular Hemoglobin 31.7 pg (26-34); Mean Corpuscular Volume 92.3 fl (80-100); Mean Platelet Volume 10.1 fl (7.4-10.4); Monocytes Absolute Auto 1.2 K/mm3 (0.1-0.6); Monocytes Percent Auto 4.7 % (2.6-8.5); Neutrophils Absolute Auto 23.9 K/mm3 (1.3-6.7); Neutrophils Percent Auto 91.2 % (45.5-73.1); Platelet Count Result 162 k/mm3 (150-375); Red Blood Count 3.25 M/mm3 (4.2-5.4); Red Cell Distribution Width 13.5 % (11.5-14.5); White Blood Count 26.2 K/mm3 (4.5-10.0)
[2024-01-23 07:00] LABS: INR 1.1; Prothrombin Time 14.5 Seconds (11.1-14.7)
[2024-01-23] MEDS: ONDANSETRON INJ 4 MG/2 ML VIAL (07:04)
[2024-01-23 07:05] LABS: Lactic Acid Reflex 1.9 mmol/L (0.7-2.0)
[2024-01-23 07:06] LABS: Alanine Aminotransferase 18 U/L (6-35); Alkaline Phosphatase 99 U/L (38-126); Anion Gap 8 mmol/L (4-12); Aspartate Amino Transferase 29 U/L (14-36); Bilirubin,Total 1.1 mg/dL (0.2-1.3); Blood Urea Nitrogen 17 mg/dL (7-17); Calcium 7.8 mg/dL (8.4-10.2); Carbon Dioxide 19 mmol/L (22-30); Chloride 90 mmol/L (98-107); Estimated CRCL calculation 39 ml/min; Estimated Glomerular Filt Rate > 60; Glucose 137 mg/dL (65-110); Potassium 3.2 mmol/L (3.4-5.0); Sodium 117 mmol/L (137-145)
[2024-01-23 07:13] LABS: NT Pro B Type Natriuretic Pept 2780 pg/mL (19.9-100)
[2024-01-23] MEDS: SODIUM CHLORIDE 0.9% IV 1,000 ML 125 ML IV CONT (07:20)
[2024-01-23 07:23] LABS: Appearance Urine Clear (Clear); Bacteria Urine None Seen /hpf; Bilirubin Urine Negative (Negative); Blood Urine Trace (Negative); Color Urine Yellow (Yellow); Glucose Urine UA Negative (Negative); Ketones Urine Negative (Negative); Leukocyte Esterase Ur Negative LEU/UL (Negative); Nitrate Urine Negative (Negative); Non Pathogenic Casts 0-2; Protein Urine 1+ mg/dL (Negative); RBC Urine 0-2 /hpf (0-2); Specific Grav Ur 1.012 (1.001-1.035); Squamous Epithelial Cell Urine None Seen /hpf (Few); Urobilinogen Urine 0.2 mg/dL (<2.0); WBC Urine 0-5 /hpf (0-3)
[2024-01-23 07:26] LABS: Influenza A QL RT-PCR Negative (Negative); Influenza B QL RT-PCR Negative (Negative); RSV RNA, RT-PCR Negative (Negative); SARS-CoV-2 RNA PCR Negative (Negative)
[2024-01-23 07:27] LABS: Magnesium 0.7 mg/dL (1.6-2.3)
[2024-01-23 07:40] LABS: Troponin I 0.022 ng/mL (0.000-0.034)
[2024-01-23 07:41] LABS: Add Urine Microscopic? YES
--- NOTE | 2024-01-23 09:02 | ECG_ITS ---
SEE SCANNED COPY FOR CONFIRMED REPORT MTDD
[2024-01-23] MEDS: FUROSEMIDE INJ 40 MG/4 ML VIAL IV PUSH ×2 (09:45→17:11)
[2024-01-23 10:21] LABS: Troponin I 0.359 ng/mL (0.000-0.034)
[2024-01-23 10:56] LABS: Procalcitonin 184.9 ng/mL
[2024-01-23] MEDS: MAGNESIUM SULF 2 GM/WATER 50ML 2 GM/50 ML BAG IVPB ×2 (11:40→15:31)
--- NOTE | 2024-01-23 12:04 | ADMGEN ---
This patient, Piedad Quiñones, was admitted to IMU Room 209-01. Patient/family oriented to hospital policies and general routines including ID bracelet, bed and alarms, visiting hours, pain management, procedures, bathroom and other care routines, personal items, smoking policy, room service/diet, and visiting hours. Information on how to activate the Rapid Response Team has been discussed. Patient/Family are encouraged to report perceived risks to care and to ask questions if they do not understand what they are told or what they should do.
[2024-01-23] MEDS: CEFEPIME 2 GM/NS 50 ML 2 GM/50 ML BAG IVPB (12:55)
[2024-01-23] MEDS: metroNIDAZOLE 500 MG/ISO 100ML 500 MG/100 ML BAG 100 MG IVPB ×2 (12:59→20:42)
[2024-01-23 14:05] LABS: Troponin I 0.365 ng/mL (0.000-0.034)
--- NOTE | 2024-01-23 14:20 | PM.IMHP ---
H&P: HPI History of Present Illness Date/Time: 01/23/24 14:20 Chief Complaint: Shortness of breath Narrative: Ms. Quiñones is an 83-year-old female living at home. History is taken from the brother her POA. He has been thinking about moving her to permanent residence she has been getting weaker over the past weeks. The patient has a history of cirrhosis undetermined etiology followed by Dr. Pierre previous on methotrexate, esophageal varices, chronic diarrhea, chronic anemia, CKD stage 3, thrombocytopenia, history of transudative pleural effusion status post thoracentesis x2, multiple nodules of the lungs, rheumatoid arthritis Plaquenil, prior tobacco abuse, COPD, history of portal vein thrombosis now off anticoagulation, presenting with shortness of breath for 1 week associated with progressive weakness and increased swelling in her lower extremities and abdomen along with pinkish tinged sputum. In [facility] she was placed on BiPAP due to hypoxia and admitted to IMU. She also received Decadron EN route. Patient found to have sodium of 117 which is new for her and critical care consulted as well as Nephrology. Advised the patient be placed on Lasix and normal saline and admitted to IMU. She was found have a large right-sided pleural effusion as well. Upon evaluation in room 209 along with her brother Gene the patient denies any new complaints aside from the progressive weakness and lower extremity swelling. She has been placed on some anti diarrheal medications by Dr. Pierre but is still had diarrhea on and off. Her shortness of breath is improved since admission. Review of Systems Review of Systems: All systems reviewed & are unremarkable except as noted in HPI and below (Subjective) PMFSH Past Medical History Medical History Anemia Back pain Chronic diarrhea Chronic renal insufficiency, stage III (moderate) Cirrhosis COPD (chronic obstructive pulmonary disease) Encounter for immunization Esophageal varices determined by endoscopy Fatigue Hypothyroidism Kidney function abnormal Liver cyst Loose stools Methotrexate, regional intermodal truck driver, current use Multiple nodules of lung Paresthesia of foot, bilateral Portal vein thrombosis Rheumatoid arthritis Vitamin D deficiency Family History Family History Father Heart disease Hypertension Alcohol abuse Mother Brain cancer Depression Sibling Alcohol abuse Lung cancer Social History Social History Smoking packs per day: 1 Smoking cigarettes per day: 20.0 Years smoked: 30 Smoking pack-years: 30.00 Smoking status: Former smoker Tobacco type: cigarettes Second hand tobacco smoke exposure: No Smoking end date: 10/03/09 Alcohol intake: never Substance use: never Substance use type: does not use Do You Feel Safe in your Home?: Yes Lack of Transportation: No Lack of Food: Never True Current Housing: I Have Housing Concerned About Future Housing: No Difficulty Paying Gas/Electric Bills: No Difficulty Paying for Meds: No Currently Unemployed: No Education: High School Diploma/GED Difficulty w/ Childcare or Family Care: No Living arrangements: alone Additional living arrangements comments: Moved from [facility] in 2019 Gender identity (if verbalized by the patient): Female Spiritual care concerns: No Agree to blood products: Yes Meds Home Medications and Allergies Home Medications Medication Instructions Recorded Confirmed Type acetaminophen 325 mg capsule 650 mg PO Q6H PRN Pain 01/12/21 01/23/24 History folic acid 1 mg tablet 1 mg PO DAILY #90 tabs 07/10/21 01/23/24 Rx multivitamin 1 tablet PO DAILY 03/17/22 01/23/24 History pyridoxine (vitamin B6) 100 mg 100 mg PO DAILY 07/20/22 01/23/24 History tablet ergocalciferol
[2024-01-23 14:45] LABS: Sodium Urine Random 66 meq/L
[2024-01-23 15:01] LABS: MRSA (PCR) NOT DETECTED (NOT DETECTE)
[2024-01-23] MEDS: SODIUM CHLORIDE 0.9% IV 1,000 ML 100 ML IV CONT (15:30)
[2024-01-23] MEDS: VANCOMYCIN 1,500 MG/NS 500 ML 1,500 MG/500 ML BAG 250 MG IVPB (15:36)
[2024-01-23] MEDS: KCL 20 MEQ/SW 100 ML 100 ML 50 MEQ IVPB (15:36)
[2024-01-23 15:37] LABS: pH Pleural Fluid > 0.000 (7.210-7.500)
[2024-01-23] MEDS: oxyBUTYnin CHLORIDE 5 MG TABLET PO (15:38)
[2024-01-23] MEDS: FLUoxetine HCL 20 MG CAPSULE PO (15:38)
[2024-01-23] MEDS: PYRIDOXINE HCL 50 MG TABLET 100 MG PO (15:38)
[2024-01-23] MEDS: MULTIVITAMINS THERAPEUTIC TAB (*BKC) 1 TABLET PO (15:38)
[2024-01-23] MEDS: FOLIC ACID 1 MG TABLET PO (15:38)
[2024-01-23] MEDS: SPIRONOLACTONE 25 MG TABLET PO (15:39)
[2024-01-23] MEDS: CHOLESTYRAMINE (W/ SUGAR) 4 GM POWD.PACK PO (15:39)
[2024-01-23] MEDS: ERGOCALCIFEROL 50,000 UNITS CAPSULE 50000 UNITS PO (15:39)
--- NOTE | 2024-01-23 16:01 | PM.CNNEP ---
Assessment and Plan Assessment and plan (1) Hyponatremia: Code(s): E87.1 - Hypo-osmolality and hyponatremia Status: Acute Assessment and Plan: multiple risk factors noted: recurrent right pleural effusion possible pneumonia underlying lung disease (COPD?) liver cirrhosis SSRI use diuretic use known history of thyroid disease check TSH, cortisol, SPEP, UPEP, and serum/urine osmolality given volume status, 3% saline not an ideal option start fluid restriction and diuresis as tolerated follow trend of repeat sodium levels I will continue to follow the patient with you while she remains hospitalized and make further recommendations as deemed necessary. Thank you for allowing me to participate in the care of this patient. History of Present Illness Reason for Consult Consult date: 01/23/24 Reason for consult: hyponatremia Chief Complaint Chief complaint: Respiratory Failure/Hyponatremia History of Present Illness Narrative: The patient is an 83-year-old female with a past medical history as outlined below who presented to [facility] Emergency Room with complaints of shortness of breath for the last week. The patient reports that along with the shortness of breath, she has noted progressive weakness as well as increased swelling / edema in her lower extremities and abdomen. She knows that she also has a productive cough of pinkish tinged sputum as well. As the symptoms continued to progressively get worse, she presented to the emergency room for further assessment. Workup and evaluation emergency room demonstrated the patient to be hypoxic and in mild respiratory distress. BiPAP was initiated in effort to optimize her respiratory status And she received IV steroids as well in route to the emergency room due to her fluctuating respiratory status. Routine blood tests were done which demonstrated a sodium of 117 which is a new finding. In effort to optimize her sodium status, she was started on normal saline as well as IV Lasix. Imaging study demonstrated that the patient a large right pleural effusion which apparently has been an ongoing issue/ problem and has had a thoracentesis done x2 for this recurrent issue/problem. Given her laboratory and imaging findings as well as her fluctuating respiratory status, she was admitted to the hospital for further evaluation and therapy. Renal consultation was requested due to her acute hyponatremia. This appears to be a relatively acute finding as her previous lab values show her sodium level to be well within normal limits. On further in questioning of the patient as well as her family, they do not recall her ever having issues or problems with hyponatremia in the past either. In spite of her significant hyponatremia, she does not appear to have any neurological sequelae associated with this electrolyte abnormality. She has no other critical electrolyte abnormalities and her renal function is relatively stable/normal. Currently, at the time my evaluation, she still appears to be in mild respiratory distress but doing somewhat better since her admission. Review of Systems Review of Systems: As per HPI. [facility] Past Medical History Medical History (Updated 01/24/24 @ 10:18 by Teagan Silva, STOCK HANDLER FLOORPERSON) Anemia Back pain Chronic diarrhea Chronic renal insufficiency, stage III (moderate) Cirrhosis COPD (chronic obstructive pulmonary disease) Encounter for immunization Esophageal varices determined by endoscopy Fatigue Hypothyroidism Kidney function abnormal Liver cyst Loose stools Methotrexate, manager terminal, current use Multiple nodules of lung Paresthesia of foot, bilateral Portal vein thrombosis Rheumatoid arthritis Vitamin D deficiency Family History Family History Father Heart disease Hypertension Alcohol abuse Mother Brain cancer Depression Sibling
[2024-01-23 16:44] LABS: Anion Gap 7 mmol/L (4-12); Blood Urea Nitrogen 16 mg/dL (7-17); Calcium 7.4 mg/dL (8.4-10.2); Carbon Dioxide 17 mmol/L (22-30); Chloride 92 mmol/L (98-107); Estimated CRCL calculation 39 ml/min; Estimated Glomerular Filt Rate > 60; Glucose 108 mg/dL (65-110); Potassium 2.9 mmol/L (3.4-5.0); Sodium 116 mmol/L (137-145)
[2024-01-23 16:45] LABS: Troponin I 0.353 ng/mL (0.000-0.034)
[2024-01-23] MEDS: SODIUM CHLORIDE 500 MG TABLET PO (17:39)
[2024-01-23 18:18] LABS: Glucose Point of Care 108 mg/dl (65-105)
[2024-01-23 19:06] LABS: Appearance Pleural Fluid Hazy (Clear); Color Pleural Fluid Yellow (Colorless); Lymphocytes Pleural Fluid 44 %; Monocytes Pleural Fluid 3 %; Neutrophils Pleural Fluid 33 % (0-25); Nucleated Cell Pleural Fluid 118 /uL (0-1000); Pleural fluid source Pleural fluid; RBC Pleural Fluid < 2000 /uL (0-10000)
[2024-01-23 19:07] LABS: Macrophages Pleural Fluid 19 %; Mesothelial Cells Pleural Flui 1 %
[2024-01-23 20:02] LABS: Anion Gap 8 mmol/L (4-12); Blood Urea Nitrogen 17 mg/dL (7-17); Calcium 7.6 mg/dL (8.4-10.2); Carbon Dioxide 18 mmol/L (22-30); Chloride 93 mmol/L (98-107); Estimated CRCL calculation 35 ml/min; Estimated Glomerular Filt Rate 60; Glucose 122 mg/dL (65-110); Potassium 3.1 mmol/L (3.4-5.0); Sodium 119 mmol/L (137-145)
[2024-01-23] MEDS: PROPRANOLOL HCL 10 MG TABLET PO (20:41)
[2024-01-23] MEDS: POTASSIUM CHLORIDE 20 MEQ PACKET (FOR LIQUID) 40 MEQ PO (20:42)
[2024-01-24] VITALS (24 sets, daily range): BP systolic 103–148; BP diastolic 62–86; PULSE 64–95; RESP 16–30; TEMP 36.1–36.8; O2SAT 81–98; BMI 24.7
[2024-01-24] MEDS: CEFEPIME 2 GM/NS 50 ML 2 GM/50 ML BAG IVPB ×2 (00:19→12:53)
[2024-01-24 00:32] LABS: Anion Gap 4 mmol/L (4-12); Blood Urea Nitrogen 19 mg/dL (7-17); Calcium 7.2 mg/dL (8.4-10.2); Carbon Dioxide 18 mmol/L (22-30); Chloride 94 mmol/L (98-107); Estimated CRCL calculation 35 ml/min; Estimated Glomerular Filt Rate 60; Glucose 109 mg/dL (65-110); Magnesium 2.5 mg/dL (1.6-2.3); Potassium 3.4 mmol/L (3.4-5.0); Sodium 116 mmol/L (137-145)
[2024-01-24 04:51] LABS: Basophils Percent Auto 0.2 % (0.2-1.2); Eosinophils Percent Auto 0.2 % (0-4.4); Hematocrit 28.8 % (37.0-47.0); Hemoglobin 9.6 g/dL (12.0-15.0); Immature Granulocyte Absolute 0.16 K/mm3 (0.00-0.031); Immature Granulocyte Percent A 0.7 % (0-0.5); Lymphocytes Absolute Auto 0.46 K/mm3 (0.9-3.2); Lymphocytes Percent Auto 1.9 % (18.3-44.2); Mean Corpuscular HGB Conc 33.3 g/dl (32-36); Mean Corpuscular Hemoglobin 31.9 pg (26-34); Mean Corpuscular Volume 95.7 fl (80-100); Mean Platelet Volume 9.4 fl (7.4-10.4); Monocytes Absolute Auto 1.1 K/mm3 (0.1-0.6); Monocytes Percent Auto 4.5 % (2.6-8.5); Neutrophils Absolute Auto 22.3 K/mm3 (1.3-6.7); Neutrophils Percent Auto 92.5 % (45.5-73.1); Platelet Count Result 155 k/mm3 (150-375); Red Blood Count 3.01 M/mm3 (4.2-5.4); Red Cell Distribution Width 13.9 % (11.5-14.5); White Blood Count 24.1 K/mm3 (4.5-10.0)
[2024-01-24 05:05] LABS: Alanine Aminotransferase 18 U/L (6-35); Albumin Level 2.6 g/dL (3.5-5.1); Alkaline Phosphatase 85 U/L (38-126); Anion Gap 7 mmol/L (4-12); Aspartate Amino Transferase 32 U/L (14-36); Bilirubin,Total 0.8 mg/dL (0.2-1.3); Blood Urea Nitrogen 21 mg/dL (7-17); Calcium 7.8 mg/dL (8.4-10.2); Carbon Dioxide 16 mmol/L (22-30); Chloride 96 mmol/L (98-107); Estimated CRCL calculation 31 ml/min; Estimated Glomerular Filt Rate 53; Glucose 105 mg/dL (65-110); Magnesium 2.6 mg/dL (1.6-2.3); Potassium 3.6 mmol/L (3.4-5.0); Sodium 119 mmol/L (137-145)
[2024-01-24 05:15] LABS: Acanthocytes 2+; Anisocytosis 1+; Platelet Estimate Adequate (Adequate)
[2024-01-24 05:16] LABS: Ovalocytes 1+; Schistocytes Rare
[2024-01-24 05:24] LABS: Procalcitonin 1.4 ng/mL
[2024-01-24] MEDS: LEVOTHYROXINE SODIUM 75 MCG TABLET PO (05:46)
[2024-01-24] MEDS: metroNIDAZOLE 500 MG/ISO 100ML 500 MG/100 ML BAG 100 MG IVPB ×2 (05:46→12:53)
[2024-01-24 06:22] LABS: Alveolar/Arterial O2 Gradient 148.6 mmHg; Carboxyhemoglobin 0.3 % THb (0-2.0); Fractional Inspired Oxygen 35 %; HCO3 ABG 18.9 mEq/l (22.0-26.0); Methemoglobin ABG 0.1 %THb (0-1.5); Oxygen Content ABG 13.4 %vol (16.0-22.0); Oxygen Saturation ABG 94.8 % (95.0-100.0); Oxyhemoglobin 92.2 % THb (90.0-100.0); PCO2 ABG 27.8 mmHg (35.0-45.0); PO2 ABG 68.6 mmHg (80.0-100.0); PO2 FiO2 Ratio Arterial Blood 1.96 %; Reduced Hemoglobin 7.4 %THb (0-5.0); Total Hemoglobin 10.3 g/dL (12.0-18.0); pH ABG 7.451 (7.350-7.450)
[2024-01-24 06:24] LABS: Device NON-INVASIVE VENT; Non-Invasive Expiratory Pressure 8 CMH2O; Non-Invasive Inspiratory Pressure 12 CMH2O; Non-Invasive Vent Rate 16 /MIN; Site Drawn RIGHT BRACHIAL
[2024-01-24] MEDS: FUROSEMIDE INJ 100 MG/10 ML VIAL 60 MG IV PUSH ×3 (08:45→17:25)
[2024-01-24] MEDS: PYRIDOXINE HCL 50 MG TABLET 100 MG PO (08:45)
[2024-01-24] MEDS: MULTIVITAMINS THERAPEUTIC TAB (*BKC) 1 TABLET PO (08:45)
[2024-01-24] MEDS: SODIUM CHLORIDE 500 MG TABLET PO ×2 (08:45→12:45)
[2024-01-24] MEDS: oxyBUTYnin CHLORIDE 5 MG TABLET PO (08:46)
[2024-01-24] MEDS: SPIRONOLACTONE 25 MG TABLET PO (08:46)
[2024-01-24] MEDS: FOLIC ACID 1 MG TABLET PO (08:46)
[2024-01-24] MEDS: PROPRANOLOL HCL 10 MG TABLET PO (08:46)
[2024-01-24] MEDS: FLUoxetine HCL 20 MG CAPSULE PO (08:46)
--- NOTE | 2024-01-24 09:30 | PC.NURSE ---
Pt called out stating she was short of breathe and was having difficulty breathing. RN to room. Pt O2 sats reading 80% on 2L NC. Pt placed back on 4L NC. O2 sats back to 95% on 4L NC. MD notified. No new orders at this time.
--- NOTE | 2024-01-24 10:04 | P.PNIM_ITS ---
Progress Note: A&P Assessment and Plan (1) Acute hyponatremia: Code(s): E87.1 - Hypo-osmolality and hyponatremia Status: Acute (2) CHF (congestive heart failure): Code(s): I50.9 - Heart failure, unspecified Status: Acute (3) Respiratory failure: Code(s): J96.90 - Respiratory failure, unspecified, unspecified whether with hypoxia or hypercapnia Status: Acute (4) Pneumonia: Code(s): J18.9 - Pneumonia, unspecified organism Status: Acute (5) Chronic diarrhea: Code(s): K52.9 - Noninfective gastroenteritis and colitis, unspecified Status: Acute (6) Pleural effusion, right: Code(s): J90 - Pleural effusion, not elsewhere classified Status: Acute (7) Cirrhosis: Qualifiers: Hepatic cirrhosis type: other cirrhosis Qualified Code(s): K74.69 - Other cirrhosis of liver Code(s): K74.60 - Unspecified cirrhosis of liver Status: Acute (8) Vitamin D deficiency: Code(s): E55.9 - Vitamin D deficiency, unspecified Status: Acute (9) Rheumatoid arthritis: Qualifiers: Rheumatoid arthritis location: unspecified site Rheumatoid factor presence: unspecified presence Qualified Code(s): M06.9 - Rheumatoid arthritis, unspecified Code(s): M06.9 - Rheumatoid arthritis, unspecified Status: Acute (10) Anemia: Qualifiers: Anemia type: unspecified type Qualified Code(s): D64.9 - Anemia, unspecified Code(s): D64.9 - Anemia, unspecified Status: Acute (11) Sepsis without septic shock: Code(s): A41.9 - Sepsis, unspecified organism Status: Acute (12) Moderate protein-calorie malnutrition: Code(s): E44.0 - Moderate protein-calorie malnutrition Status: Acute Plan Sepsis without septic shock secondary to pneumonia * empiric IV antibiotic therapy: Vanc/cefepime/Flagyl * Monitor lactic acid levels q6hr. 1.6 * Two sets of blood cultures pending * urine cultures. Negative * procalcitonin level elevated * neuro status checks * TTE Diastolic HF LVEF 60-65% * Chest x-ray pneumonia with moderate RT sided moderate pleural effusion. * Monitor albumin * glucose monitoring and control Acute respiratory failure with hypoxia secondary to pneumonia and pleural effusions and COPD * Pulmonology consult Dr. Lopez * Bipap at FIO2 35% * Bronchodilators. * Chest x-ray pneumonia with moderate RT sided moderate pleural effusion. * incentive spirometry while awake. 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 and spironolactone * Thoracentesis 01/22 yielded 1100 mL * Still on 2 L supplemental oxygen * Encourage incentive spirometer Hyponatremia with hypo-osmolality * Multifocal * NA 116 POA>119 * nephrology consulted * Sodium chloride tabs * Fluid restriction * Lasix TID * Neuro checks * 6HR BMP Elevated troponin * Likely secondary to ischemic demand * Down trending * EKG with no ischemic changes * Denies any chest pain or shortness of breath * TTE Diastolic HF LVEF 60-65% Cirrhosis unknown e
--- NOTE | 2024-01-24 10:04 | PM.IMPN ---
Progress Note: A&P Assessment and Plan (1) Acute hyponatremia: Code(s): E87.1 - Hypo-osmolality and hyponatremia Status: Acute (2) CHF (congestive heart failure): Code(s): I50.9 - Heart failure, unspecified Status: Acute (3) Respiratory failure: Code(s): J96.90 - Respiratory failure, unspecified, unspecified whether with hypoxia or hypercapnia Status: Acute (4) Pneumonia: Code(s): J18.9 - Pneumonia, unspecified organism Status: Acute (5) Chronic diarrhea: Code(s): K52.9 - Noninfective gastroenteritis and colitis, unspecified Status: Acute (6) Pleural effusion, right: Code(s): J90 - Pleural effusion, not elsewhere classified Status: Acute (7) Cirrhosis: Qualifiers: Hepatic cirrhosis type: other cirrhosis Qualified Code(s): K74.69 - Other cirrhosis of liver Code(s): K74.60 - Unspecified cirrhosis of liver Status: Acute (8) Vitamin D deficiency: Code(s): E55.9 - Vitamin D deficiency, unspecified Status: Acute (9) Rheumatoid arthritis: Qualifiers: Rheumatoid arthritis location: unspecified site Rheumatoid factor presence: unspecified presence Qualified Code(s): M06.9 - Rheumatoid arthritis, unspecified Code(s): M06.9 - Rheumatoid arthritis, unspecified Status: Acute (10) Anemia: Qualifiers: Anemia type: unspecified type Qualified Code(s): D64.9 - Anemia, unspecified Code(s): D64.9 - Anemia, unspecified Status: Acute (11) Sepsis without septic shock: Code(s): A41.9 - Sepsis, unspecified organism Status: Acute (12) Moderate protein-calorie malnutrition: Code(s): E44.0 - Moderate protein-calorie malnutrition Status: Acute Plan Sepsis without septic shock secondary to pneumonia empiric IV antibiotic therapy: Vanc/cefepime/Flagyl Monitor lactic acid levels q6hr. 1.6 Two sets of blood cultures pending urine cultures. Negative procalcitonin level elevated neuro status checks TTE Diastolic HF LVEF 60-65% Chest x-ray pneumonia with moderate RT sided moderate pleural effusion. Monitor albumin glucose monitoring and control Acute respiratory failure with hypoxia secondary to pneumonia and pleural effusions and COPD Pulmonology consult Dr. Lopez Bipap at FIO2 35% Bronchodilators. Chest x-ray pneumonia with moderate RT sided moderate pleural effusion. incentive spirometry while awake. 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 and spironolactone Thoracentesis 01/22 yielded 1100 mL Still on 2 L supplemental oxygen Encourage incentive spirometer Hyponatremia with hypo-osmolality Multifocal NA 116 POA>119 nephrology consulted Sodium chloride tabs Fluid restriction Lasix TID Neuro checks 6HR BMP Elevated troponin Likely secondary to ischemic demand Down trending EKG with no ischemic changes Denies any chest pain or shortness of breath TTE Diastolic HF LVEF 60-65% Cirrhosis unknown etiology Abdominal ultrasound showed small ascites Is following with Dr. Pierre outpatient Resume Lasix and spironolactone Chronic Diarrhea Was started on cholestyramine O/P will continue monitor electrolytes replenish as needed Moderate malnourishment secondary to poor caloric and protein intake Dietitian consult Had supplemental protein shakes HX CKD: Stage 3 stable HX anemia: Stable, Monitor Hgb HX Lung nodules: Previous PET scan showed benign HX RA: Resumed plaquenil
--- NOTE | 2024-01-24 11:46 | PM.PNNEP ---
Progress Note: A&P Assessment and Plan (1) Hyponatremia: Code(s): E87.1 - Hypo-osmolality and hyponatremia Status: Acute Assessment and Plan: multiple risk factors noted: recurrent right pleural effusion possible pneumonia underlying lung disease (COPD?) liver cirrhosis SSRI use diuretic use known history of thyroid disease given volume status, 3% saline not an ideal option on fluid restriction and diuresis as tolerated follow trend of repeat sodium levels Subjective Date/time seen: 01/24/24 11:46 Interval history: Follow-up for acute hyponatremia. Respiratory status still remains tenous at this time; sodium seems about the same despite current interventions/therapy; Pulmonary consulted for further evaluation of respiratory status and recurrent pleural effusion; no acute issues/events overnight or earlier this morning. Exam Narrative: General: elderly and frail Cacuasian female in mild disress Heart: normal S1 and S2; no rub Lungs: decreased at bases with scattered wheezes noted Abdomen: soft, nontender, nondistended, positive bowel sounds Extremities: no cyanosis or clubbing; 2+ edema Skin: warm and dry Objective Data Vital Signs Vital Signs: Vital Signs Temp Pulse Resp BP Pulse Ox O2 Del Method O2 Flow Rate 01/24/24 11:28 98.2 F 95 24 H 148/85 H 95 01/24/24 09:30 82 L High Flow Nasal Cannula 4 01/24/24 10:00 72 01/24/24 08:00 68 01/24/24 09:00 92 High Flow Nasal Cannula 2 01/24/24 08:51 94 High Flow Nasal Cannula 3 01/24/24 08:00 94 High Flow Nasal Cannula 4 01/24/24 08:46 76 01/24/24 07:33 94 High Flow Nasal Cannula 4 01/24/24 07:33 97.8 F 74 20 139/86 96 01/24/24 02:05 77 20 94 BiPAP 01/23/24 23:10 76 25 H 94 BiPAP 01/24/24 05:05 74 18 93 BiPAP 01/24/24 06:00 64 01/24/24 04:00 97.8 F 65 17 121/70 98 01/24/24 04:00 65 16 98 BiPAP 01/24/24 04:00 65 01/24/24 02:00 64 01/24/24 00:00 70 16 96 High Flow Nasal Cannula 4 01/24/24 00:00 73 01/24/24 00:08 97.0 F L 70 16 103/62 98 01/23/24 22:00 78 01/23/24 21:59 88 20 96 BiPAP 01/23/24 20:00 87 20 99 High Flow Therapy with Na 4 01/23/24 20:00 87 01/23/24 20:41 80 01/23/24 20:33 97.6 F 68 20 100/73 99 01/23/24 18:00 75 Intake/Output Intake/Output: Intake & Output 01/21/24 01/22/24 01/23/24 01/24/24 23:59 23:59 23:59 23:59 Intake Total 2630 660 Output Total 2650 1100 Balance -20 -440 Meds/Results Medications: Active Medications Generic Name Dose Route Start Last Admin Trade Name Freq PRN Reason Stop Dose Admin Azelastine HCl 1 spray 01/23/24 16:51 01/24/24 13:31 Azelastine Hcl Nasal 0.1% 137 Mcg/Spr 30 Ml Btl NASAL 1 spray Q12H PRN Administration NASAL CONGESTION Cholestyramine Resin 4 gm 01/23/24 14:25 01/24/24 14:50 Cholestyramine (W/ Sugar) 4 Gm Powd.Pack PO Not Given 1400 JAIR Dextrose 12.5 gm 01/24/24 15:23 Dextrose 50% 25 Gm/50 Ml Syringe IV PUSH PRN PRN Hypoglycemia Protocol Ergocalciferol 50,000 units 01/23/24 14:25 01/23/24 15:39 Ergocalciferol 50,000 Units Capsule PO 50,000 units Mo@0900 JAIR Administration Fluoxetine HCl 20 mg 01/23/24 14:25 01/24/24 08:46 Fluoxetine Hcl 20 Mg Capsule PO 20 mg DAILY JAIR Administration Folic Acid 1 mg 01/23/24 14:25 01/24/24 08:46 Folic Acid 1 Mg Tablet PO 1 mg DAILY JAIR Administration Furosemide 60 mg 01/24/24 09:00 01/24/24 12:45 Furosemide Inj 100 Mg/10 Ml Vial IV PUSH 60 mg TID JAIR Administration Glucagon 1 mg 01/24/24 15:23 Glucagon For Inj 1 Mg Vial IM PRN PRN Hypoglycemia Protocol Glucose 15 gm 01/24/24 15:23 Glucose Oral Gel 15 Gm Of Glucse In 37.5 Gm Tube PO PRN PRN Hypoglycemia
[2024-01-24 12:18] LABS: Glucose Point of Care 119 mg/dl (65-105)
--- NOTE | 2024-01-24 12:42 | PM.CNPUL ---
Assessment and Plan Assessment and plan (1) Pleural effusion, right: Code(s): J90 - Pleural effusion, not elsewhere classified Status: Acute Assessment and Plan: effusion he initially did identified on MRI of the abdomen on 08/08/2023 and this was new since 09/29/2022. 10/11/2023:? Right thoracentesis of 1000 mL of cloudy yellow fluid.? PH greater than 7.50, g stain with no organisms.? No white blood cells.? Red blood cells greater than 2000.? Nucleated cells 437.? Neutrophils 2%, lymphocytes 88%, monocytes 5%, macrophages 5%.? Pleural LDH 82 with serum LDH 127 with a ratio of 0.65.? Pleural total protein less than 3 with serum total protein 6 with a ratio less than 0.5.? Pleural glucose 104.? Pleural amylase 30.? Bacterial culture negative.? AFB stain negative, culture pending.? Fungal stain and culture not performed.? Cytology negative.? Postprocedure chest x-ray shows a moderate-sized right pleural effusion This represents an exudative, lymphocytic, culture negative, cytology negative right pleural effusion. reaccumulation of the right pleural effusion on chest x-ray 11/11/2023 and discussed referral to thoracic surgery, repeat thoracentesis or repeat chest x-ray in 1 month and she opted for repeat chest x-ray in 1 month. Repeat chest x-ray on 12/07/2023 demonstrated moderate right pleural effusion with some increased from 11/11/2023 and I discussed Thoracentesis with the patient and she agreed and discussed with Radiology the possibility of a hepatic hydrothorax and nuclear medicine studies with tracers injected in the abdomen looking for presence in right hemithorax to diagnose a hepatic hydro thorax are not done at [facility]. 01/02/24: Patient underwent thoracentesis of the right lung on 01/02/2024 with 1000 mL of yellow fluid remember of.? Postprocedure chest x-ray demonstrated a moderate pleural effusion occupying approximately 35% of the right hemithorax.? PH was greater than 7.50, g stain few white blood cells, no organisms.? AFB smear was negative.? Total cell counts not performed.? Neutrophils 15%, lymphocytes 77%, macrophages 4%, mesothelial cells 4%.? Pleural total protein less than 3, no serum total protein measured and the last thoracentesis her total protein was 6.0 with a ratio less than 0.50.? Pleural LDH 37.? Last LDH measured on 10/12/2023 was 127.? Pleural glucose 101.? pleural amylase 32.? Pleural cytology negative for malignancy. ? Currently this 01/02/24 thoracentesis demonstrates a transudative, noninfectious, cytology negative pleural effusion. patient presents on 01/22 with reaccumulated right pleural effusion occupying approximately 60% of the right hemithorax with 1100 of yellow fluid removed, pH greater than 7.50, g stain with many white blood cells and no organisms seen. Differential neutrophils 33%, lymphocytes 44%, monocytes 3%, macrophages 19%, mesothelial cells 1%. remainder of chemistries, cultures and cytology pending. Etiology of recurrent alternating exudative and then transudative pleural effusion includes congestive heart failure, cirrhosis, infection, rheumatoid arthritis and cancer. Plan: Patient has reaccumulated her pleural effusion requiring 3 thoracentesis since October of 2023. Etiology remains unclear. I have added cytology on to this most recent thoracentesis. Of note she has a PET negative right upper lobe nodule. Agree with as aggressive diuresis as tolerated by her cardiac and renal systems. No evidence of empyema currently. Patient is on broad-spectrum antibiotics with ceftriaxone, Flagyl and vancomycin pending cultures. I added pleural fluid cytology on today. I will repeat a chest x-ray in the morning of patient remains in respiratory distress will repeat a thoracentesis on 01/25/2024. Patient has re accumulated right pleural effusion and at this time recommend transfer to higher level care facility so that she can be evaluated by Interventional pulmonology or
[2024-01-24] MEDS: AZELASTINE HCL NASAL 0.1% 137 MCG/SPR 30 ML BTL 1 SPRAY NASAL (13:31)
[2024-01-24 16:27] LABS: Lactate Dehydrogenase 173 U/L (120-246)
[2024-01-24 17:13] LABS: Anion Gap 8 mmol/L (4-12); Blood Urea Nitrogen 23 mg/dL (7-17); Calcium 7.6 mg/dL (8.4-10.2); Carbon Dioxide 18 mmol/L (22-30); Chloride 92 mmol/L (98-107); Estimated CRCL calculation 26 ml/min; Estimated Glomerular Filt Rate 43; Glucose 130 mg/dL (65-110); Potassium 3.6 mmol/L (3.4-5.0); Sodium 118 mmol/L (137-145)
[2024-01-24 18:06] LABS: Glucose Point of Care 133 mg/dl (65-105)
--- NOTE | 2024-01-24 18:23 | PC.NURSE ---
Notified Teagan Silva NP of pt change in condition. RT and RN unable to get pt off of BiPAP for transfer to [facility]. [facility] is unable to transfer pt on more than 15L oxygen. Pt has received a total of 180mg Lasix IVP today with 700ml urine out. New order for 1mg Bumex IVP x1 now. While on the phone [facility] service returned call and will accept pt for transfer while on the BiPAP at the current settings of: Vt 450, Peep 6, Rate 14, Min-I 7, Max-I 25 FiO2 100%.
--- NOTE | 2024-01-24 18:25 | PCRCNOTE ---
RN notified RT that patient will be transferred to [facility] but EMS stated they don't take BIPAP. RT attempted to wean patient from AVAPS 100% to 15L HFNC plus 15L NRBM, SpO2 in low 80s. RT placed patient back on AVAPS Vt 450, R 14, Peep 6, Min PS 7-Max PS 25, FiO2 100%, Rise 1, I time 0.8. RN and Dr. Jorge aware.
[2024-01-24] MEDS: BUMETANIDE INJ 1 MG/4 ML VIAL IV PUSH (18:31)
--- NOTE | 2024-01-24 19:11 | PC.NURSE ---
Pt transferred via [facility] to [facility] Room 476, Bed 5. Bi[address], tolerating well. [facility] notified of transfer and that pt is in route
[2024-01-25 15:24] LABS: Osmolality, Urine 239 mOsm/kg (50-1200)
--- NOTE | 2024-01-27 11:27 | PM.TDS ---
Transfer Discharge Sum: Prov Provider Date of admission: 01/23/24 10:01 Primary care physician: Edna Corrales MD Admitting clinician: Shabbir Morales MD Attending physician on admission: Vasquez Milton Consults: 01/23/24 Consult to Dietitian Routine Reason for Consult:: malnutrition and weakness 01/23/24 10:03 Consult to Physician Routine Comment: Consulting Provider: Kari Hernandez call center team leader/MD group to consult: brenda Reason for consultation: hyponatremia Has provider been notified: Yes 01/24/24 Consult to Physician Routine Comment: called Dr. Jorge with consult Consulting Provider: Marin Jorge call center team leader/MD group to consult: John/Educational Adviser Reason for consultation: Pleural effusion/R/O empyema Has provider been notified: Yes Attending physician on discharge: Vasquez Milton Discharging clinician: Teagan Silva Anticipated date of transfer: 01/24/24 Receiving physician/facility: Dr. Connelly at [facility] DS: Admitting Diagnosis Discharge Date 01/24/24 Admitting Diagnosis Acute respiratory failure with hypoxia/Sepsis without septic shock DS: Discharge Diagnosis Discharge Diagnosis (1) Acute hyponatremia: Code(s): E87.1 - Hypo-osmolality and hyponatremia Status: Acute (2) CHF (congestive heart failure): Code(s): I50.9 - Heart failure, unspecified Status: Acute (3) Respiratory failure: Code(s): J96.90 - Respiratory failure, unspecified, unspecified whether with hypoxia or hypercapnia Status: Acute (4) Pneumonia: Code(s): J18.9 - Pneumonia, unspecified organism Status: Acute (5) Chronic diarrhea: Code(s): K52.9 - Noninfective gastroenteritis and colitis, unspecified Status: Acute (6) Pleural effusion, right: Code(s): J90 - Pleural effusion, not elsewhere classified Status: Acute (7) Cirrhosis: Qualifiers: Hepatic cirrhosis type: other cirrhosis Qualified Code(s): K74.69 - Other cirrhosis of liver Code(s): K74.60 - Unspecified cirrhosis of liver Status: Acute (8) Vitamin D deficiency: Code(s): E55.9 - Vitamin D deficiency, unspecified Status: Acute (9) Rheumatoid arthritis: Qualifiers: Rheumatoid arthritis location: unspecified site Rheumatoid factor presence: unspecified presence Qualified Code(s): M06.9 - Rheumatoid arthritis, unspecified Code(s): M06.9 - Rheumatoid arthritis, unspecified Status: Acute (10) Anemia: Qualifiers: Anemia type: unspecified type Qualified Code(s): D64.9 - Anemia, unspecified Code(s): D64.9 - Anemia, unspecified Status: Acute (11) Sepsis without septic shock: Code(s): A41.9 - Sepsis, unspecified organism Status: Acute (12) Moderate protein-calorie malnutrition: Code(s): E44.0 - Moderate protein-calorie malnutrition Status: Acute Plan Sepsis without septic shock secondary to pneumonia empiric IV antibiotic therapy: Vanc/cefepime/Flagyl Monitor lactic acid levels q6hr. 1.6 Two sets of blood cultures pending urine cultures. Negative procalcitonin level elevated neuro status checks TTE Diastolic HF LVEF 60-65% Chest x-ray pneumonia with moderate RT sided moderate pleural effusion. Monitor albumin glucose monitoring and control Acute respiratory failure with hypoxia secondary to pneumonia and pleural effusions and COPD Pulmonology consult Dr. John Schulz at FIO2 35% Bronchodilators. Chest x-ray pneumonia with moderate RT sided moderate pleural effusion. incentive spirometry while awake. 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
[2024-01-27 15:23] LABS: Pneumococcal Antigen Urine NOT DETECTED
[2024-01-28 21:38] LABS: Legionella pneumophila Ag Ur NOT DETECTED
[2024-01-29 20:04] LABS: Glucose Pleural Fluid 113 mg/dL; LDH Pleural Fluid 30 U/L; Total Protein Pleural Fluid <3.0 g/dL
== END 2024-01-24 19:10 | disposition short-term general hospital (02) | DRG 871 ==
LOC: ANHED 09:28 → ANHIMU 11:37
PROVIDERS: Emergency Medicine; General Practice; Internal Medicine Pulmonary Disease; Admitting Provider Internal Medicine; Emergency Provider Emergency Medicine; PCP Family Medicine; Visit Provider Nurse Practitioner Family
DX: A41.9 Sepsis, unspecified organism (principal); I50.31 Acute diastolic (congestive) heart failure; J18.9 Pneumonia, unspecified organism; J96.01 Acute respiratory failure with hypoxia; E87.1 Hypo-osmolality and hyponatremia; J44.0 Chronic obstructive pulmonary disease with (acute) lower respiratory infection; J90 Pleural effusion, not elsewhere classified; E44.0 Moderate protein-calorie malnutrition; J94.8 Other specified pleural conditions; I24.89 Other forms of acute ischemic heart disease; E87.6 Hypokalemia; E83.42 Hypomagnesemia; N18.30 Chronic kidney disease, stage 3 unspecified; M06.9 Rheumatoid arthritis, unspecified; K52.9 Noninfective gastroenteritis and colitis, unspecified; K74.60 Unspecified cirrhosis of liver; E03.9 Hypothyroidism, unspecified; E55.9 Vitamin D deficiency, unspecified; R91.8 Other nonspecific abnormal finding of lung field; R20.2 Paresthesia of skin; Z20.822 Contact with and (suspected) exposure to COVID-19; Z87.891 Personal history of nicotine dependence; Z79.631 Long term (current) use of antimetabolite agent; Z79.899 Other long term (current) drug therapy; Z68.24 Body mass index [BMI] 24.0-24.9, adult
CPT/HCPCS: 32555; 36415; 36600; 71045; 76705; 80048; 80053; 81001; 82375; 82805; 82945; 82948; 83050; 83605; 83615; 83735; 83880; 83930; 83935; 83986; 84145; 84155; 84157; 84300; 84484; 85025; 85610; 85730; 87040; 87070; 87075; 87102; 87205; 87206; 87449; 87637; 87641; 87899; 88108; 88305; 89051; 93005; 93306; 94640; 96374; 96375; 99291; A9270; J0692; J1836; J1939; J1940; J2405; J3370; J3475; J3480; J7030